=== PATIENT | female | born 1940 | race Caucasian/White ===

== ENCOUNTER 2019-04-23 16:13 | Inpatient (IN) | payer MEDICARE ==
[~2019-04-23] VITALS: Ht 162.6 cm; Wt 76.7 kg
[2019-04-23] VITALS (10 sets, daily range): BP systolic 102–137; BP diastolic 43–98
[2019-04-23 17:14] LABS: BASOPHILS % 0.3 % (0.0-1.0); EOSINOPHILS % 0.1 % (0.0-6.0); HEMATOCRIT 46.8 % (34.2-44.1); HEMOGLOBIN 15.8 g/dL (12.0-16.0); LYMPHOCYTES # (AUTO) 0.7 (1.0-3.2); LYMPHOCYTES % 6.4 % (18.0-39.1); MEAN CORPUSCULAR HEMOGLOBIN 31.1 pg (28-32); MEAN CORPUSCULAR HGB CONC 33.8 g/dL (31-35); MEAN CORPUSCULAR VOLUME 92.1 fL (81-99); MONOCYTES # (AUTO) 0.7 (0.2-0.8); MONOCYTES % 6.2 % (4.4-11.3); NEUTROPHILS # (AUTO) 9.5 (2.1-6.9); NEUTROPHILS % 86.1 % (38.7-80.0); PLATELET COUNT 113 x10e3/uL (140-360); RED BLOOD COUNT 5.08 x10e6/uL (3.6-5.1); RED CELL DISTRIBUTION WIDTH 15.4 % (11.7-14.4)
[2019-04-23 17:24] LABS: INR 2.96; PROTHROMBIN TIME 31.6 seconds (11.9-14.5)
[2019-04-23 17:29] LABS: ANION GAP 14.5 mmol/L (8-16); CALCIUM 9.8 mg/dL (8.4-10.2); CREATININE, SERUM 1.43 mg/dL (0.57-1.11); POTASSIUM 4.5 mmol/L (3.5-5.1)
[2019-04-23] MEDS: VANCOMYCIN 1GM/NS 250 ML 250 ML IV SCH (17:30)
[2019-04-23] MEDS ORDERED: CALCITRIOL0.25 MCG PO (18:01)
[2019-04-23] MEDS ORDERED: breo IH (18:01)
[2019-04-23] MEDS ORDERED: PREDNISONE5 MG PO (18:01)
[2019-04-23] MEDS ORDERED: GLIPIZIDE5 MG PO (18:01)
[2019-04-23] MEDS ORDERED: WARFARIN SODIUM1 MG PO (18:01)
[2019-04-23] MEDS ORDERED: CARTIA XT180 MG PO (18:01)
[2019-04-23] MEDS ORDERED: VENLAFAXINE HCL75 MG PO (18:01)
[2019-04-23] MEDS ORDERED: SPIRONOLACTONE25 MG PO (18:01)
[2019-04-23] MEDS ORDERED: FUROSEMIDE40 MG PO (18:01)
[2019-04-23] MEDS ORDERED: LEVOTHYROXINE50 MCG PO (18:01)
[2019-04-23] MEDS ORDERED: ALLOPURINOL300 MG PO (18:01)
[2019-04-23] MEDS ORDERED: SYSTANE GEL EYE10 ML OU (18:01)
[2019-04-23] MEDS ORDERED: GABAPENTIN300 MG PO (18:01)
[2019-04-23] MEDS ORDERED: KLOR-CON M2020 MEQ PO (18:01)
[2019-04-23] MEDS ORDERED: METOPROLOL SUCC25 MG PO (18:01)
[2019-04-23] MEDS ORDERED: PRAVASTATIN SOD40 MG PO (18:01)
[2019-04-23] MEDS ORDERED: DIGOXIN125 MCG PO (18:01)
[2019-04-23] MEDS: SODIUM CHLORIDE 0.9% 1000ML 1,000 ML IV SCH ×2 (18:06→23:46)
--- NOTE | 2019-04-23 18:09 | NUR ---
daughter, Karyn Gaston [phone] she stated that she would look for proper documentation and bring copy Addendum: 04/23/19 at 1810 by Anju Aguilar RN Amended: Links added.
--- NOTE | 2019-04-23 18:16 | Diagnostic Imaging Report ---
EXAMINATION: Abdominal ultrasound. CLINICAL INDICATION: Nausea vomiting COMPARISON: None DISCUSSION: Transverse and longitudinal images of the upper abdomen were obtained. The liver is normal in size measuring 13.9 centimeters in length in the right midclavicular line and shows normal echogenicity. No focal masses are seen in the liver. There is no intrahepatic biliary dilatation. The common bile duct measures 0.2 cm. The main portal vein measures 1.1 cm. The gallbladder contains gallstones. No wall thickening. Pierce's sign negative. The visualized portions of the pancreatic body are unremarkable. The spleen is normal in echogenicity and size measuring 9.7 centimeters in length. The right kidney measures 8.9 centimeters in length and the left kidney measures 9.4 centimeters. There is normal renal cortical echogenicity and no hydronephrosis, solid mass or shadowing calculi. 1.8 cm simple left renal cyst. The visualized portions of the great vessels are normal. No free fluid is seen. IMPRESSION: Cholelithiasis without inflammatory change Signed by: Dr. Laureano Patricio M.D. on 04/23/2019 6:13 PM
[2019-04-23] MEDS: PIPER-TAZ 3.375 GM 50 ML IV SCH ×3 (18:46→23:46)
[2019-04-24] VITALS (20 sets, daily range): BP systolic 109–146; BP diastolic 46–94
--- NOTE | 2019-04-24 04:22 | History and Physical ---
CHIEF COMPLAINT: Diarrhea. HISTORY OF PRESENT ILLNESS: Ms. Gaston is a 78-year-old female. She presented to the [facility] and where she was having diarrhea. She mostly lives in [facility] and lives a week in [place] with her daughter. She denies any bloody stools or black stools. She denies any chest pain, nausea, vomiting. She has a history of atrial fibrillation, diabetes, hypertension. She is on Coumadin at home. INR is 2.96. Her lactic acid was 5 at the [facility] and hence she was admitted for sepsis here. Her blood pressure has been stable. REVIEW OF SYSTEMS: GENERAL: Fever and chills. HEAD: Denies any head trauma. ENT: Denies any earache. CARDIOVASCULAR SYSTEM: Denies any chest pain. RESPIRATORY: Denies any shortness of breath. GASTROINTESTINAL: The patient is having diarrhea. The rest of the review of systems are negative except as in HPI. PAST MEDICAL HISTORY: Hypertension, hyperlipidemia, diabetes. The patient is on long-term Coumadin for atrial fibrillation. PHYSICAL EXAMINATION: VITAL SIGNS: Temperature 98.4, pulse of 74, blood pressure 112/60, respiratory rate 18, and O2 saturation 93% on room air. HEENT: Head is atraumatic and normocephalic. NECK: Supple. CHEST: Clear to auscultation bilaterally. No wheezing. HEART: S1, S2 audible. ABDOMEN: Soft. EXTREMITIES: No pedal edema. NEUROLOGIC: Awake and alert. LABORATORY DATA: Sodium 135, potassium 4.5, BUN 35, creatinine 1.43. INR is 2.96. White count of 10,000. CT abdomen and pelvis, which was done in the emergency room, showed cholelithiasis without inflammatory changes. ASSESSMENT AND PLAN: Ms. Gaston is a 78-year-old female with sepsis. No clear-cut source. The patient is having diarrhea. No CT evidence of diverticulitis. Current problem: 1. Sepsis, etiology is not very clear. CT abdomen did not show any source. We did the abdominal ultrasound and it did not show any evidence of cholelithiasis. Chest x-ray is not showing any evidence for pneumonia. Continue the broad-spectrum antibiotic. I will consult ID. 2. Atrial fibrillation, currently rate controlled. The patient is on Coumadin, which will be resumed. Home medication will be resumed as well. We will consider consulting Cardiology. 3. Acute kidney injury likely dehydration. Continue the patient on IV fluids. Recheck labs in a.m. 4. No need for deep venous thrombosis prophylaxis. The patient is anticoagulated. Coumadin will be started in the a.m. 5. We will put the patient on clear liquid diet until seen by Gastroenterology. Critical care time spent 50 minutes. MD JYOTI Valderrama/NENA /[id number]
[2019-04-24] MEDS: VANCOMYCIN 1GM/NS 250 ML 250 ML IV SCH (04:43)
[2019-04-24 05:04] LABS: BASOPHILS % 0.2 % (0.0-1.0); EOSINOPHILS # (AUTO) 0.1 (0.0-0.4); EOSINOPHILS % 1.2 % (0.0-6.0); HEMOGLOBIN 14.6 g/dL (12.0-16.0); LYMPHOCYTES % 12.5 % (18.0-39.1); MEAN CORPUSCULAR HEMOGLOBIN 30.7 pg (28-32); MEAN CORPUSCULAR HGB CONC 33.2 g/dL (31-35); MEAN CORPUSCULAR VOLUME 92.6 fL (81-99); MONOCYTES # (AUTO) 0.7 (0.2-0.8); NEUTROPHILS # (AUTO) 6.3 (2.1-6.9); NEUTROPHILS % 77.6 % (38.7-80.0); PLATELET COUNT 102 x10e3/uL (140-360); RED BLOOD COUNT 4.75 x10e6/uL (3.6-5.1); RED CELL DISTRIBUTION WIDTH 15.5 % (11.7-14.4)
[2019-04-24 05:22] LABS: ANION GAP 13.6 mmol/L (8-16); CALCIUM 8.8 mg/dL (8.4-10.2); CREATININE, SERUM 1.17 mg/dL (0.57-1.11); POTASSIUM 3.6 mmol/L (3.5-5.1)
--- NOTE | 2019-04-24 06:34 | NUR ---
Contreras placed for pt complaint of unable to void, urine retention. 16 FR 10cc balloon. Sterile technique. Foul yellow urine with sediment 550 cc immediate return. No complications noted.
[2019-04-24] MEDS: LEVOTHYROXINE SODIUM 100 MCG TAB PO SCH (07:12)
[2019-04-24] MEDS: PIPER-TAZ 3.375 GM 50 ML IV SCH ×2 (07:12→11:44)
--- NOTE | 2019-04-24 07:35 | NUR ---
Call to notify Dr Mckeon of new consult for A fib. Answering service received call and stated, "do not worry, I will send him this consult".
--- NOTE | 2019-04-24 07:36 | NUR ---
Paged and spoke with Dr Landers regarding consult for abdominal pain.
[2019-04-24] MEDS: ALLOPURINOL 300 MG TAB PO SCH (08:40)
[2019-04-24] MEDS: PREDNISONE 5 MG TAB PO SCH (08:40)
[2019-04-24] MEDS: CALCITRIOL 0.25 MCG CAP PO SCH (08:40)
[2019-04-24] MEDS: SODIUM CHLORIDE 0.9% 1000ML 1,000 ML IV SCH ×3 (08:45→23:05)
[2019-04-24] MEDS ORDERED: DEXTROSE 50% SYRINGE 50 ML IV PRN ×2 (09:15)
[2019-04-24 09:43] LABS: BILIRUBIN,URINE NEGATIVE (NEGATIVE); CLARITY,URINE CLEAR (CLEAR); COLOR,URINE YELLOW (YELLOW); KETONES,URINE NEGATIVE (NEGATIVE); LEUKOCYTE ESTERASE ,URINE NEGATIVE (NEGATIVE); NITRITE,URINE NEGATIVE (NEGATIVE); PROTEIN,URINE DIPSTICK NEGATIVE (NEGATIVE); URINE UROBILINOGEN 0.2 mg/dL (0.2 - 1)
[2019-04-24 10:01] LABS: AMORPHOUS SEDIMENT,URINE FEW (FEW); BACTERIA,URINE MODERATE /HPF; EPITHELIAL CELLS,URINE MODERATE /LPF
[2019-04-24] MEDS: INSULIN LISPRO 100 UNIT/1 ML 3ML VIAL SQ SCH ×3 (11:30→21:24)
[2019-04-24] MEDS: DIGOXIN 0.125 MG TAB PO SCH (11:42)
[2019-04-24] MEDS: DILTIAZEM HCL 180 MG CAP ER PO SCH (11:42)
[2019-04-24] MEDS: GABAPENTIN 300 MG CAP PO SCH (11:43)
[2019-04-24] MEDS ORDERED: CEFTRIAXONE SOD 1 GM VIAL IV SCH (15:15)
--- NOTE | 2019-04-24 15:21 | NUR ---
dr liz here to see pt, abx changed to rocephin
[2019-04-24] MEDS: CEFTRIAXONE SOD 1 GM/NS 50 ML 50 ML IV SCH (16:30)
--- NOTE | 2019-04-24 16:49 | Consultation ---
DATE OF CONSULTATION: 04/24/2019 Infectious Disease Consultation I would like to thank Dr. Finley for this interesting consult. HISTORY OF PRESENT ILLNESS: A 78-year-old female with past medical history of hypertension, hyperlipidemia, diabetes mellitus, atrial fibrillation on anticoagulation with Coumadin, has been visiting her daughter in [place] from [place]. According to the patient, she does not remember what exactly was going on, but a day before hospital admission she started having nausea and vomiting with a few bouts of diarrhea. The patient denies any exotic foods. Denies any sick contacts. Denies any fever, confusion. The patient is also complaining of frequency in urination. With these complaints, the patient went to [facility] ER, where she was found to have elevated INR of 2.96, and elevated lactic acid. For the concerns of sepsis, the patient was sent to our facility for further evaluation. She was admitted in ICU. Initial workup suggested WBC count of 10 and creatinine of 1.4. Her lactic acid was elevated. The patient was started on IV vancomycin and Zosyn. Initial workup suggested pyuria and bacteriuria. No signs of pneumonia. An ultrasound of the abdomen showed cholelithiasis without any inflammation, and our service has been asked to evaluate and give further recommendations. PAST MEDICAL HISTORY: Hypertension, hyperlipidemia, diabetes mellitus, and atrial fibrillation. PAST SURGICAL HISTORY: Nonsignificant. MEDICATIONS: Reviewed. ALLERGIES: TO SULFA AND CODEINE. REVIEW OF SYSTEMS: All 14-point review of systems was done, all were negative except for the once mentioned in HPI. The patient feels better than yesterday. PHYSICAL EXAMINATION: VITAL SIGNS: Temperature is 98.4, respiratory rate is 18, heart rate is 97, and blood pressure is 109/73. GENERAL: An elderly pleasant female, sitting comfortably in the chair. HEENT: Atraumatic and normocephalic. CHEST: Clear to auscultation bilaterally. HEART: S1, S2 normal. ABDOMEN: Soft and nontender. EXTREMITIES: No edema. NEUROLOGIC: Alert and oriented x3. SKIN: No rashes. LABORATORY DATA: WBC 8.14, hemoglobin 14.6, hematocrit 44, and platelet count is 102. Chemistry; sodium 135, potassium 3.6, BUN 28, and creatinine 1.7. Lactic acid initially was 23.9, now 16.7. Calcium is 8.8. Ultrasound of the abdomen shows cholelithiasis without inflammatory changes. ASSESSMENT AND PLAN: This is a pleasant 78-year-old female with past medical history of hypertension, hyperlipidemia, diabetes mellitus, and atrial fibrillation, admitted with nausea and vomiting, likely due to viral gastroenteritis. The patient had elevated lactic acid and creatinine along with electrolyte imbalance representing dehydration. Urinalysis suggestive of urinary tract infection. We will discontinue current antibiotics. Start the patient on Rocephin 1 g daily. We will follow the urine culture for further recommendations. Thank you for letting me participate in the care of your patient. MD JEFF Smith/MODL /[id number]
[2019-04-24] MEDS: WARFARIN SOD 3 MG TAB PO SCH (17:22)
--- NOTE | 2019-04-24 22:56 | Consultation ---
DATE OF CONSULTATION: 04/24/2019 Cardiology Consultation Thank you so much for asking me to see this nice lady in consultation. REASON FOR CONSULTATION: Ms. Gaston is a pleasant, elderly 78-year-old woman, who presented out to [facility] emergency room with a complaint of nausea and vomiting. HISTORY OF PRESENT ILLNESS: The patient reports her memory really is not very good, but she remembers having abdominal discomfort, nausea, vomiting. She is not sure whether she had fever, but did have abdominal pains. PAST MEDICAL HISTORY: May be incomplete due to her inability to recount memory details, but it is clear she has had chronic atrial fibrillation that she has a covered stent in her abdominal aorta. However, she cannot tell me the names of any of these people who performed these procedures nor further located. She lives by herself near [place]. She says she does not have horses or cattle. HOME MEDICATIONS: Include allopurinol 300 mg daily, calcitriol 0.25 mcg daily, digoxin 0.125 mg daily, Cartia XT 180 mg daily, furosemide 40 mg daily, gabapentin 300 mg, glipizide 5 mg daily, levothyroxine 50 mcg daily, metoprolol succinate 25 mg once daily, potassium 20 mEq twice a day, pravastatin 40 mg daily, prednisone 5 mg daily, spironolactone 25 mg daily, venlafaxine 75 mg two tabs daily, and warfarin three 1 mg tablets daily. PERSONAL AND SOCIAL HISTORY: She does not smoke or drink. REVIEW OF SYSTEMS: CARDIAC: She denies any history of myocardial infarction, but knows that she does take warfarin for atrial fibrillation. She denies any recent chest pains. PHYSICAL EXAMINATION: GENERAL: At this time shows a pleasant elderly woman, sitting in a chair. VITAL SIGNS: Blood pressure 130/70, pulse 90 and irregularly irregular. HEAD, EYES, EARS, NOSE, AND THROAT: Unremarkable. NECK: No jugular venous distention. No bruits. THORAX: Heart sounds S1 and S2 are equal, but irregularly irregular. There is no murmur audible. LUNGS: Clear at this time. ABDOMEN: Protuberant, nontender. No masses or organomegaly. EXTREMITIES: She has no cyanosis, clubbing, or edema. PERTINENT LABORATORY STUDIES: Show EKG showing atrial fibrillation without ST or T-wave changes. Ultrasound of the abdomen shows gallstones without Pierce sign and covered aortic stent. Chemistry show glucose 98, BUN 28, creatinine 1.1. INR 2.96. Initial white cell count 10.9. ASSESSMENT: 1. Nausea and vomiting, not clear. 2. Cholelithiasis. 3. Chronic atrial fibrillation. 4. Covered aortic stent. 5. Type 2 adult onset diabetes. 6. Mild dementia. PLAN: We will check echocardiogram to evaluate left ventricular function and await further GI evaluation. We will follow her closely with you. Thank you for asking me to see her in consultation. MD HUGH Ness/NENA /[id number]
[2019-04-25] VITALS (8 sets, daily range): BP systolic 117–178; BP diastolic 46–77
[2019-04-25] MEDS: LEVOTHYROXINE SODIUM 100 MCG TAB PO SCH (05:05)
[2019-04-25 05:16] LABS: BASOPHILS % 0.4 % (0.0-1.0); EOSINOPHILS # (AUTO) 0.1 (0.0-0.4); EOSINOPHILS % 1.7 % (0.0-6.0); HEMATOCRIT 41.9 % (34.2-44.1); HEMOGLOBIN 13.6 g/dL (12.0-16.0); LYMPHOCYTES # (AUTO) 1.6 (1.0-3.2); LYMPHOCYTES % 21.1 % (18.0-39.1); MEAN CORPUSCULAR HEMOGLOBIN 30.8 pg (28-32); MEAN CORPUSCULAR HGB CONC 32.5 g/dL (31-35); MEAN CORPUSCULAR VOLUME 94.8 fL (81-99); MONOCYTES # (AUTO) 0.6 (0.2-0.8); MONOCYTES % 8.2 % (4.4-11.3); NEUTROPHILS % 67.9 % (38.7-80.0); PLATELET COUNT 106 x10e3/uL (140-360); RED BLOOD COUNT 4.42 x10e6/uL (3.6-5.1); RED CELL DISTRIBUTION WIDTH 15.8 % (11.7-14.4)
[2019-04-25 05:31] LABS: PROTHROMBIN TIME 31.9 seconds (11.9-14.5)
[2019-04-25 05:58] LABS: ANION GAP 13.2 mmol/L (8-16); BLOOD UREA NITROGEN 15 mg/dL (7-26); BUN/CREATININE RATIO 20 (6-25); CALCIUM 8.4 mg/dL (8.4-10.2); CARBON DIOXIDE 22 mmol/L (22-29); CHLORIDE 111 mmol/L (98-107); CREATININE, SERUM 0.76 mg/dL (0.57-1.11); EST GLOMERULAR FILTRATION RATE > 60 ML/MIN (60-); GLUCOSE 85 mg/dL (74-118); POTASSIUM 3.2 mmol/L (3.5-5.1); SODIUM 143 mmol/L (136-145)
[2019-04-25] MEDS: INSULIN LISPRO 100 UNIT/1 ML 3ML VIAL SQ SCH ×4 (07:30→21:00)
[2019-04-25] MEDS: SODIUM CHLORIDE 0.9% 1000ML 1,000 ML IV SCH (08:08)
[2019-04-25] MEDS ORDERED: POTASSIUM CHLORIDE 20 MEQ TAB CR PO NR (09:00)
[2019-04-25] MEDS: GLIPIZIDE 5 MG TAB PO SCH (09:01)
[2019-04-25] MEDS: DILTIAZEM HCL 180 MG CAP ER PO SCH (09:02)
[2019-04-25] MEDS: GABAPENTIN 300 MG CAP PO SCH (09:03)
[2019-04-25] MEDS: CALCITRIOL 0.25 MCG CAP PO SCH (09:03)
[2019-04-25] MEDS: DIGOXIN 0.125 MG TAB PO SCH (09:03)
[2019-04-25] MEDS: PREDNISONE 5 MG TAB PO SCH (09:03)
[2019-04-25] MEDS: ALLOPURINOL 300 MG TAB PO SCH (09:04)
[2019-04-25] MEDS: CEFTRIAXONE SOD 1 GM/NS 50 ML 50 ML IV SCH (16:11)
[2019-04-25] MEDS: WARFARIN SOD 3 MG TAB PO SCH (16:11)
--- NOTE | 2019-04-25 16:57 | NUR ---
nsg report given to marek gironpig furnace operator 3. for transfer to room 284
--- NOTE | 2019-04-25 19:00 | NUR ---
Completed BS rounds with morning nurse. Pt alert to name. Lying in bed HOB 60 degrees. Denies pain at this time. Family at BS. Call baez within reach. Will continue to monitor.
[2019-04-26] VITALS (7 sets, daily range): BP systolic 118–182; BP diastolic 59–79
--- NOTE | 2019-04-26 04:45 | Consultation ---
DATE OF CONSULTATION: 04/25/2019 GI Consult Note CHIEF COMPLAINT: Nausea, vomiting, diarrhea. HISTORY OF PRESENT ILLNESS: A 78 years old female, who got admitted with acute onset of nausea, vomiting, diarrhea for a couple of days. Evaluation also revealed that she has urinary tract infection. She is being treated with antibiotic. Today when I saw her, her GI symptoms completely resolved. She is no longer having diarrhea. Nausea and vomiting also resolved. She has no associated abdominal pain. No fever or chills. No extraintestinal complaints at this time. REVIEW OF SYSTEMS: Twelve-point system reviewed, symptomatology is limited as per HPI. PAST MEDICAL HISTORY: Hypertension, hyperlipidemia, type 2 diabetes, atrial fibrillation on warfarin. PAST SURGICAL HISTORY: Unknown. FAMILY HISTORY: Noncontributory, given her advanced age. SOCIAL HISTORY: No smoking, alcohol, or any recent illicit drug use. ALLERGIES: SULFA, CODEINE. HOME MEDICATIONS: Allopurinol, calcitriol, digoxin, diltiazem, furosemide, gabapentin, glipizide, levothyroxine, metoprolol, potassium chloride, pravastatin, prednisone, MiraLAX, spironolactone, venlafaxine, warfarin. INPATIENT MEDICATIONS: Reviewed as per OCT. PHYSICAL EXAMINATION: VITAL SIGNS: Temperature 98.5, pulse 64, respirations 16, blood pressure 119/56, oxygen saturation 98% on room air. GENERAL: Not in any acute distress. Oral mucosa is moist. Anicteric sclerae. CVS: S1, S2. Irregularly irregular. LUNGS: Bilaterally grossly clear. ABDOMEN: Soft, nondistended, nontender. No palpable mass or hernia. Positive bowel sounds. LABORATORY DATA: WBC 7.43, hemoglobin 13.6, hematocrit 41.9. MCV 94.8, platelet count 106. Sodium 143, potassium 3.2, chloride 111, bicarb 22. BUN 15, creatinine 0.76. Urinalysis, positive for UTI. Urine culture negative. Blood culture negative. Ultrasound of the abdomen showed normal size liver, gallbladder contains some stones without any gallbladder wall thickening. Spleen is normal. No free fluids. IMPRESSION: 1. Acute nausea, vomiting, diarrhea that were self-limiting, which have resolved. The patient's overall health condition improved significantly after she is being treated for urinary tract infection. 2. Thrombocytopenia, unclear. PLAN: Continue present medical management. Nothing to offer from GI standpoint at this time. Recommend hematology consult for thrombocytopenia. There is a chance that she may be having COLVIN/liver cirrhosis with underlying portal hypertension causing thrombocytopenia. Spleen size, however, was noted normal in ultrasound. Once the patient is discharged, then I will follow her in my office for further workup and evaluation to rule out underlying cirrhosis. I thank Dr. Finley for allowing me to participate in the care of this patient. Blaise Mckeon MD SA/NENA /[id number]
[2019-04-26] MEDS: LEVOTHYROXINE SODIUM 100 MCG TAB PO SCH (05:27)
[2019-04-26 06:10] LABS: BASOPHILS % 0.4 % (0.0-1.0); EOSINOPHILS # (AUTO) 0.1 (0.0-0.4); EOSINOPHILS % 1.9 % (0.0-6.0); HEMATOCRIT 45.8 % (34.2-44.1); HEMOGLOBIN 14.9 g/dL (12.0-16.0); LYMPHOCYTES # (AUTO) 1.3 (1.0-3.2); LYMPHOCYTES % 19.2 % (18.0-39.1); MEAN CORPUSCULAR HGB CONC 32.5 g/dL (31-35); MEAN CORPUSCULAR VOLUME 95.2 fL (81-99); MONOCYTES # (AUTO) 0.6 (0.2-0.8); MONOCYTES % 8.1 % (4.4-11.3); NEUTROPHILS # (AUTO) 4.8 (2.1-6.9); NEUTROPHILS % 69.8 % (38.7-80.0); PLATELET COUNT 100 x10e3/uL (140-360); RED BLOOD COUNT 4.81 x10e6/uL (3.6-5.1); RED CELL DISTRIBUTION WIDTH 15.4 % (11.7-14.4)
[2019-04-26 06:28] LABS: INR 2.46; PROTHROMBIN TIME 27.4 seconds (11.9-14.5)
[2019-04-26 06:34] LABS: ANION GAP 14.5 mmol/L (8-16); BLOOD UREA NITROGEN 14 mg/dL (7-26); BUN/CREATININE RATIO 18 (6-25); CALCIUM 9.6 mg/dL (8.4-10.2); CARBON DIOXIDE 22 mmol/L (22-29); CHLORIDE 105 mmol/L (98-107); CREATININE, SERUM 0.77 mg/dL (0.57-1.11); EST GLOMERULAR FILTRATION RATE > 60 ML/MIN (60-); GLUCOSE 94 mg/dL (74-118); POTASSIUM 3.5 mmol/L (3.5-5.1); SODIUM 138 mmol/L (136-145)
--- NOTE | 2019-04-26 07:00 | NUR ---
received am report from RN and morning rounds done. pt is sleeping comfortably, no s/s of distress. call light within reach and side rails up.
--- NOTE | 2019-04-26 07:22 | NUR ---
Pt handed off to morning nurse. BS report given. No acute distress noted.
[2019-04-26] MEDS: INSULIN LISPRO 100 UNIT/1 ML 3ML VIAL SQ SCH ×4 (07:30→20:00)
[2019-04-26] MEDS: GLIPIZIDE 5 MG TAB PO SCH (09:44)
[2019-04-26] MEDS: DILTIAZEM HCL 180 MG CAP ER PO SCH (09:44)
[2019-04-26] MEDS: DIGOXIN 0.125 MG TAB PO SCH (09:44)
[2019-04-26] MEDS: CALCITRIOL 0.25 MCG CAP PO SCH (09:45)
[2019-04-26] MEDS: GABAPENTIN 300 MG CAP PO SCH (09:45)
[2019-04-26] MEDS: PREDNISONE 5 MG TAB PO SCH (09:45)
[2019-04-26] MEDS: ALLOPURINOL 300 MG TAB PO SCH (09:46)
[2019-04-26] MEDS ORDERED: PRAVASTATIN SOD40 MG PO (09:53)
[2019-04-26] MEDS ORDERED: VITAMIN D1000 UNI1 PO (09:56)
[2019-04-26] MEDS: IPRATROPIUM BROMIDE 0.02% 2.5 ML NEB NEB SCH ×3 (11:10→19:40)
--- NOTE | 2019-04-26 11:30 | NUR ---
EDUCATED ABOUT IMM, SIGNED, FILED IN CHART, WITH COPY LEFT WITH FAMILY AT BEDSIDE.
[2019-04-26] MEDS: FUROSEMIDE 20 MG TAB PO SCH (11:42)
[2019-04-26] MEDS: VENLAFAXINE HCL 75 MG CAPCR PO SCH (11:42)
[2019-04-26] MEDS: METOPROLOL TARTRATE 25 MG TAB PO SCH (11:43)
--- NOTE | 2019-04-26 14:23 | NUR ---
REMOVED RIOS. INSTRUCTED PT TO CALL NURSE FOR HELP WHEN NEEDING TO GO TO THE BATHROOM
[2019-04-26] MEDS: CEFTRIAXONE SOD 1 GM/NS 50 ML 50 ML IV SCH (17:00)
[2019-04-26] MEDS: WARFARIN SOD 3 MG TAB PO SCH (17:16)
[2019-04-26] MEDS ORDERED: SODIUM CHLORIDE 0.9% 250ML 250 ML ONE (17:23)
[2019-04-26] MEDS: BUDESONIDE/FORMOTEROL 160/4.5MCG INHALER INH SCH (20:00)
--- NOTE | 2019-04-26 20:00 | NUR ---
PATIENT AOX2 NO SIGNS OF DISTRESS NOTED. FAMILY MEMBER PRESENT IN ROOM, PATIENT AWARE TO CALL NURSE WHENEVER SHE NEEDS TO GO TO RESTROOM. PATIENT IN RECLINER, CALL LIGHT IS WITHIN EASY REACH, WILL CONTINUE TO MONITOR.
--- NOTE | 2019-04-26 21:45 | NUR ---
PATIENT IS BACK IN BED, VOICES THAT SHE STILL KNOWS TO CALL NURSE FOR RESTROOM ASSISTANCE. BED ALARM IS ACTIVATED, BOTH SIDE RAILS ARE UP, CALL LIGHT WITHIN REACH, WILL CONTINUE TO MONITOR.
[2019-04-27] VITALS (8 sets, daily range): BP systolic 108–164; BP diastolic 61–79
--- NOTE | 2019-04-27 00:09 | Progress Note ---
DATE: 04/26/2019 GI Progress Report SUBJECTIVE: The patient reports no abdominal pain. Tolerating oral diet. No nausea, vomiting or diarrhea. REVIEW OF SYSTEMS: GENERAL: No fever or chills. CVS: No chest pain or palpitation. RESPIRATORY: No cough or expectoration. MEDICATIONS: Reviewed as per OCT. OBJECTIVE: VITAL SIGNS: Temperature 97.7, pulse 71, respirations 20, blood pressure 134/63 and oxygen saturation 97% on room air. GENERAL: Not in any acute distress. HEENT: Oral mucosa is moist. Anicteric sclerae. ABDOMEN: Soft, nondistended. Nontender. No palpable mass or hernia. Positive bowel sounds. LABORATORY DATA: WBC 6.92, hemoglobin 14.9, hematocrit 45.8, MCV 95.2, and platelet count 100. Sodium 138, potassium 3.5, chloride 105, bicarb 22, BUN 14, creatinine 0.77. ASSESSMENT: 1. Acute gastroenteritis, this has resolved. 2. Nonalcoholic steatohepatitis liver cirrhosis with likely underlying portal hypertension causing thrombocytopenia. PLAN: Today, her daughter was available at the bedside. She told me that her mom lives in [place]. She sees a space scheduler, Dr. Seals, he is taking care of her liver cirrhosis. From GI standpoint, patient can be discharged home. Blaise Mckeon MD SA/NENA /[id number]
[2019-04-27 06:15] LABS: BASOPHILS % 0.6 % (0.0-1.0); EOSINOPHILS # (AUTO) 0.1 (0.0-0.4); EOSINOPHILS % 2.1 % (0.0-6.0); HEMATOCRIT 46.1 % (34.2-44.1); LYMPHOCYTES % 29.5 % (18.0-39.1); MEAN CORPUSCULAR HEMOGLOBIN 30.9 pg (28-32); MEAN CORPUSCULAR HGB CONC 32.5 g/dL (31-35); MEAN CORPUSCULAR VOLUME 95.1 fL (81-99); MONOCYTES # (AUTO) 0.6 (0.2-0.8); MONOCYTES % 9.3 % (4.4-11.3); NEUTROPHILS # (AUTO) 3.9 (2.1-6.9); NEUTROPHILS % 57.3 % (38.7-80.0); PLATELET COUNT 89 x10e3/uL (140-360); RED BLOOD COUNT 4.85 x10e6/uL (3.6-5.1); RED CELL DISTRIBUTION WIDTH 15.3 % (11.7-14.4)
[2019-04-27] MEDS: LEVOTHYROXINE SODIUM 100 MCG TAB PO SCH (06:25)
[2019-04-27] MEDS: BUDESONIDE/FORMOTEROL 160/4.5MCG INHALER INH SCH ×2 (06:25→19:05)
[2019-04-27 06:27] LABS: ANION GAP 17.5 mmol/L (8-16); BLOOD UREA NITROGEN 15 mg/dL (7-26); BUN/CREATININE RATIO 19 (6-25); CALCIUM 9.8 mg/dL (8.4-10.2); CARBON DIOXIDE 20 mmol/L (22-29); CHLORIDE 106 mmol/L (98-107); CREATININE, SERUM 0.79 mg/dL (0.57-1.11); EST GLOMERULAR FILTRATION RATE > 60 ML/MIN (60-); GLUCOSE 109 mg/dL (74-118); POTASSIUM 3.5 mmol/L (3.5-5.1); SODIUM 140 mmol/L (136-145)
--- NOTE | 2019-04-27 07:00 | NUR ---
received am report from nurse and morning rounds done. pt is resting comfortably in bed, no s/s of distress. pt responded to verbal stimuli and is alert. new rash present on left lower gao, applied calazime skin barrier and will continue to monitor. call light within reach and pt instructed to call nurse for help
[2019-04-27] MEDS: INSULIN LISPRO 100 UNIT/1 ML 3ML VIAL SQ SCH ×4 (07:30→20:15)
[2019-04-27] MEDS: IPRATROPIUM BROMIDE 0.02% 2.5 ML NEB NEB SCH ×3 (07:30→21:30)
[2019-04-27] MEDS: GLIPIZIDE 5 MG TAB PO SCH (08:50)
[2019-04-27] MEDS: DILTIAZEM HCL 180 MG CAP ER PO SCH (08:52)
[2019-04-27] MEDS: VENLAFAXINE HCL 75 MG CAPCR PO SCH (08:52)
[2019-04-27] MEDS: DIGOXIN 0.125 MG TAB PO SCH (08:52)
[2019-04-27] MEDS: GABAPENTIN 300 MG CAP PO SCH (08:53)
[2019-04-27] MEDS: PREDNISONE 5 MG TAB PO SCH (08:53)
[2019-04-27] MEDS: CALCITRIOL 0.25 MCG CAP PO SCH (08:53)
[2019-04-27] MEDS: FUROSEMIDE 20 MG TAB PO SCH (08:53)
[2019-04-27] MEDS: ALLOPURINOL 300 MG TAB PO SCH (08:53)
[2019-04-27] MEDS: METOPROLOL TARTRATE 25 MG TAB PO SCH (08:53)
[2019-04-27 08:57] LABS: EOSINOPHILS % (MANUAL) 2 % (0-7); LYMPHOCYTES % (MANUAL) 28 % (19-48); MONOCYTES % (MANUAL) 10 % (3.4-9.0); NEUTROPHILS % (MANUAL) 60 % (40-74); PLATELET ESTIMATE MARKEDLY DECREASED; PLATELET MORPHOLOGY COMMENT FEW GIANT; RBC MORPHOLOGY COMMENT NORMAL
[2019-04-27] MEDS ORDERED: VENLAFAXINE HCL 75 MG TAB PO SCH (09:00)
[2019-04-27 09:04] LABS: INR 2.15; PROTHROMBIN TIME 24.7 seconds (11.9-14.5)
[2019-04-27] MEDS: CEFTRIAXONE SOD 1 GM/NS 50 ML 50 ML IV SCH (15:30)
[2019-04-27] MEDS: WARFARIN SOD 3 MG TAB PO SCH (17:17)
--- NOTE | 2019-04-27 18:30 | NUR ---
CHANGE OF CONDITION pt was found by the tech sitting on the floor after sliding off the bedside recliner. pt stated that she slid off and landed on her bottom, she also stated that she did not hit her head and she had no complaints of pain. upon further assessment, there were no new abrasions/cuts/scrapes noted. the daughter of the patient was notified and Dr. domingo was paged with no response as of yet.
--- NOTE | 2019-04-27 20:00 | NUR ---
RECEIVED CALL FROM DR. JOHNSON TO UPDATE HIM ON PATIENT'S CONDITION. PATIENT IS ALERT AND STABLE, NO SIGNS OF DISTRESS NOTED. FAMILY MEMBER PRESENT AND PATIENT SITTING IN RECLINER. PATIENT KNOWS TO USE CALL LIGHT TO AMBULATE. CALL LIGHT IS WITHIN EASY REACH, WILL CONTINUE TO MONITOR.
[2019-04-28] VITALS (8 sets, daily range): BP systolic 141–158; BP diastolic 72–90
--- NOTE | 2019-04-28 02:30 | Consultation ---
DATE OF CONSULTATION: REASON FOR CONSULTATION: Evaluation and management of the patient with thrombocytopenia. HISTORY OF PRESENT ILLNESS: Ms. Gaston is a 78-year-old female with multiple medical problems including known history of hypertension, hyperlipidemia, diabetes mellitus, and atrial fibrillation on chronic anticoagulation, presents to the emergency department due to nausea, vomiting, and diarrhea. She underwent workup revealing urinary tract infection and subsequently started on IV antibiotics. She was seen and evaluated by Infectious Disease service as well as Gastroenterology. Hematology-Oncology has been consulted to assist with the management due to thrombocytopenia. PAST MEDICAL HISTORY: 1. Hypertension. 2. Hyperlipidemia. 3. Diabetes mellitus. 4. Atrial fibrillation on chronic anticoagulation. PAST SURGICAL HISTORY: None. SOCIAL HISTORY: No reported history of smoking, alcohol use, or illicit drug use. ALLERGIES: SULFA AND CODEINE. CURRENT MEDICATIONS: Reviewed as per electronic medical record. REVIEW OF SYSTEMS: A 14-point review of systems negative except as mentioned per history of presenting illness. PHYSICAL EXAMINATION: VITAL SIGNS: Reviewed as per electronic medical record. HEENT: PERRLA. Extraocular movements are intact. Head is atraumatic and normocephalic. NECK: Supple. CVS: S1 and S2 audible. RESPIRATORY: Decreased bilateral air entry. ABDOMEN: Soft. Positive bowel sounds. EXTREMITIES: Negative cyanosis. NEUROLOGIC: The patient is alert. LABORATORY DATA: White blood cell count of 7.4, hemoglobin 13.6, hematocrit 41.9, platelet 106, INR 3.0, BUN 15, creatinine 0.7. ASSESSMENT AND PLAN: Ms. Gaston is a very pleasant 78-year-old female with known history of hypertension, hyperlipidemia, diabetes mellitus, and atrial fibrillation on chronic anticoagulation, admitted to emergency department due to nausea, vomiting, and diarrhea. She had a workup revealing acute gastroenteritis as well as possible urinary tract infection. She has been started on IV antibiotics with improved symptoms. Hematology-Oncology has been consulted due to thrombocytopenia. I have reviewed the record and discussed at length with the GI team as well as the patient about her current disease status and importance of further workup. It appears that there might be a concern of underlying liver cirrhosis that could contribute to thrombocytopenia. However, I will get baseline workup and depending on the result we will provide further recommendations. Meanwhile, we will closely monitor as platelet count is in noncritical range, though it needs to be checked on daily basis for the trend, especially as the patient is on Coumadin therapy. Thank you for the consult. I will continue to be available. Please call with questions. MD DWAIN Ignacio/MODL /[id number]
[2019-04-28] MEDS: LEVOTHYROXINE SODIUM 100 MCG TAB PO SCH (06:48)
--- NOTE | 2019-04-28 07:00 | NUR ---
received am report from nurse and morning rounds done. pt is alert resting in bed, no s/s of distress. call light within reach and pt instructed to call nurse for help. side rails are up
[2019-04-28] MEDS: INSULIN LISPRO 100 UNIT/1 ML 3ML VIAL SQ SCH ×4 (07:30→20:20)
[2019-04-28] MEDS: IPRATROPIUM BROMIDE 0.02% 2.5 ML NEB NEB SCH ×3 (07:30→20:20)
[2019-04-28] MEDS: BUDESONIDE/FORMOTEROL 160/4.5MCG INHALER INH SCH ×2 (07:35→19:38)
[2019-04-28] MEDS: GLIPIZIDE 5 MG TAB PO SCH (08:36)
[2019-04-28] MEDS: DILTIAZEM HCL 180 MG CAP ER PO SCH (08:36)
[2019-04-28] MEDS: VENLAFAXINE HCL 75 MG CAPCR PO SCH (08:36)
[2019-04-28] MEDS: METOPROLOL TARTRATE 25 MG TAB PO SCH (08:37)
[2019-04-28] MEDS: FUROSEMIDE 20 MG TAB PO SCH (08:37)
[2019-04-28] MEDS: GABAPENTIN 300 MG CAP PO SCH (08:37)
[2019-04-28] MEDS: PREDNISONE 5 MG TAB PO SCH (08:37)
[2019-04-28] MEDS: DIGOXIN 0.125 MG TAB PO SCH (08:37)
[2019-04-28] MEDS: CALCITRIOL 0.25 MCG CAP PO SCH (08:38)
[2019-04-28] MEDS: ALLOPURINOL 300 MG TAB PO SCH (08:38)
[2019-04-28 09:26] LABS: INR 2.16; PROTHROMBIN TIME 24.8 seconds (11.9-14.5)
[2019-04-28 09:53] LABS: FERRITIN 103.48 ng/mL (4.63-204.00)
[2019-04-28 12:05] LABS: FOLATE 28.2 ng/mL (7.0-15.4)
--- NOTE | 2019-04-28 14:05 | NUR ---
Visit made by the Spiritual Care Department Pastoral Visitor, Manjeet Queen. PV provided pastoral presence, hospitality, and supportive listening. Pastoral Visitor informed pt/family of the scope of Product Marketing Director Services and availability. ALPHONSE AMEZQUITA [employer]ili[employer] Supervisor Spiritual Care Department O: [phone] Pager: [phone] ([phone] number calling from)
[2019-04-28] MEDS: CEFTRIAXONE SOD 1 GM/NS 50 ML 50 ML IV SCH (15:30)
[2019-04-28] MEDS: WARFARIN SOD 3 MG TAB PO SCH (17:24)
--- NOTE | 2019-04-28 20:20 | NUR ---
PATIENT IS ALERT AND ORIENTED, NO SIGNS OF DISTRESS NOTED. FAMILY MEMBER AT BEDSIDE, AND PATIENT IS GETTING RESPIRATORY TREATMENT WHILE SITTING IN RECLINER. CALL LIGHT IS WITHIN EASY REACH, WILL CONTINUE TO MONITOR.
[2019-04-29 00:15] VITALS: BP 141/68
--- NOTE | 2019-04-29 00:53 | NUR ---
PATIENT RESTING IN BED, BOTH EYES CLOSED, NO RESPIRATORY DISTRESS NOTED. BED ALARM IS ACTIVATED, BOTH SIDE RAILS ARE UP, CALL LIGHT WITHIN REACH, WILL CONTINUE TO MONITOR.
[2019-04-29 04:46] VITALS: BP 146/76
[2019-04-29] MEDS: LEVOTHYROXINE SODIUM 100 MCG TAB PO SCH (05:37)
[2019-04-29 06:27] LABS: BASOPHILS % 0.4 % (0.0-1.0); EOSINOPHILS # (AUTO) 0.2 (0.0-0.4); EOSINOPHILS % 2.2 % (0.0-6.0); HEMATOCRIT 43.7 % (34.2-44.1); HEMOGLOBIN 14.6 g/dL (12.0-16.0); LYMPHOCYTES # (AUTO) 2.3 (1.0-3.2); LYMPHOCYTES % 31.1 % (18.0-39.1); MEAN CORPUSCULAR HEMOGLOBIN 31.1 pg (28-32); MEAN CORPUSCULAR HGB CONC 33.4 g/dL (31-35); MONOCYTES # (AUTO) 0.7 (0.2-0.8); MONOCYTES % 9.2 % (4.4-11.3); NEUTROPHILS # (AUTO) 4.1 (2.1-6.9); NEUTROPHILS % 55.6 % (38.7-80.0); PLATELET COUNT 122 x10e3/uL (140-360); RED CELL DISTRIBUTION WIDTH 15.4 % (11.7-14.4)
[2019-04-29 06:52] LABS: ANION GAP 16.3 mmol/L (8-16); BLOOD UREA NITROGEN 22 mg/dL (7-26); BUN/CREATININE RATIO 27 (6-25); CALCIUM 10.3 mg/dL (8.4-10.2); CARBON DIOXIDE 26 mmol/L (22-29); CHLORIDE 104 mmol/L (98-107); CREATININE, SERUM 0.83 mg/dL (0.57-1.11); EST GLOMERULAR FILTRATION RATE > 60 ML/MIN (60-); GLUCOSE 109 mg/dL (74-118); POTASSIUM 3.3 mmol/L (3.5-5.1); SODIUM 143 mmol/L (136-145)
[2019-04-29] MEDS: IPRATROPIUM BROMIDE 0.02% 2.5 ML NEB NEB SCH (07:00)
[2019-04-29] MEDS: BUDESONIDE/FORMOTEROL 160/4.5MCG INHALER INH SCH (07:00)
[2019-04-29] MEDS: INSULIN LISPRO 100 UNIT/1 ML 3ML VIAL SQ SCH ×3 (07:30→11:52)
--- NOTE | 2019-04-29 07:30 | NUR ---
PT RESTING DURING BEDSIDE ROUNDS WHICH WAS DONE EARLIER
[2019-04-29 07:44] VITALS: BP_SYST 135; BP_SYST 198; BP_DIAS 78; BP_DIAS 84
[2019-04-29 07:55] VITALS: BP 198/84
[2019-04-29] MEDS: GLIPIZIDE 5 MG TAB PO SCH (08:00)
[2019-04-29] MEDS: PREDNISONE 5 MG TAB PO SCH (09:00)
[2019-04-29] MEDS: DILTIAZEM HCL 180 MG CAP ER PO SCH (09:00)
[2019-04-29] MEDS: GABAPENTIN 300 MG CAP PO SCH (09:00)
[2019-04-29] MEDS: METOPROLOL TARTRATE 25 MG TAB PO SCH (09:00)
[2019-04-29] MEDS: ALLOPURINOL 300 MG TAB PO SCH (09:00)
[2019-04-29] MEDS: VENLAFAXINE HCL 75 MG CAPCR PO SCH (09:00)
[2019-04-29] MEDS: CALCITRIOL 0.25 MCG CAP PO SCH (09:00)
[2019-04-29] MEDS: FUROSEMIDE 20 MG TAB PO SCH (09:00)
[2019-04-29] MEDS: DIGOXIN 0.125 MG TAB PO SCH (09:00)
[2019-04-29 09:14] LABS: PLATELET ESTIMATE SLIGHTLY DECREASED
--- NOTE | 2019-04-29 09:15 | NUR ---
DR JOHNSON TO SEE PT, NEW ORDERS REC'D PT TO BE DISCHARGED AFTER LUNCH
[2019-04-29 11:23] LABS: INR 2.25; PROTHROMBIN TIME 25.6 seconds (11.9-14.5)
[2019-04-29 11:32] VITALS: BP 142/78
--- NOTE | 2019-04-29 14:17 | NUR ---
PATIENT DISCHARGE ORDER. IV DISCONTINUED EARLIER
--- NOTE | 2019-04-29 20:09 | Discharge Summary ---
FINAL DIAGNOSES: 1. Gastroenteritis. 2. Possible urinary tract infection. 3. Atrial fibrillation. 4. Acute kidney injury that is resolved, possibly dehydration. 5. Mild thrombocytopenia, which is since improved. 6. Long-term Coumadin treatment for atrial fibrillation. ADMISSION HISTORY AND HOSPITAL COURSE: Ms. Gaston is a 78-year-old female. She presented to the emergency room with complaints of diarrhea. During the hospital stay, the patient was hypotensive, had mild sepsis, never required any vasopressors. IV hydration was given. The patient's kidney function improved. She had chronic atrial fibrillation. Cardiology was consulted. The patient has been stable. Medications were resumed. Coumadin was continued. Yesterday, the patient INR was 2.6. She is on Coumadin 3 mg home dose. She will be discharged home to follow up with her primary care physician. I will discontinue the Rocephin. She received it for 5 days. This was discussed with the patient's daughter at bedside. User Experience Analyst recommended follow up with Hematology as an outpatient for possible flow cytometry that was explained to the patient. She is on chronic steroids for COPD that needs to be tapered off. She has opted to follow up in [place], where her daughter lives and all her physicians in [place]. MD JYOTI Valderrama/NENA /[id number]
--- NOTE | 2019-04-29 23:01 | Progress Note ---
DATE: 04/29/2019 Followup Note CHIEF COMPLAINT: The patient with thrombocytopenia of uncertain etiology. HISTORY OF PRESENTING ILLNESS: Ms. Gsaton is a very pleasant 78-year-old female, known history of hypertension, hyperlipidemia, diabetes mellitus, and atrial fibrillation on chronic anticoagulation, admitted due to nausea, vomiting, and diarrhea. She was also noted to have thrombocytopenia, which gradually got worse and subsequently Hematology-Oncology has been consulted. I have reviewed the record and discussed the plan with the patient. Overall, the cause of thrombocytopenia is uncertain, however, bone marrow suppression. I have recommended outpatient flow cytometry and followup. Apparently, the patient is not following up in [place] rather [place] is [place]. She will find local oncologist and have a workup locally. This has been discussed with the primary attending in detail. MD DWAIN Ignacio/NENA /[id number]
== END 2019-04-29 14:18 | disposition home or self-care (01) | DRG 872 ==
LOC: ICU 16:13 → MED/SURG3 04-25 17:50
PROVIDERS: ADMIT Internal Medicine; ATTEND Internal Medicine
DX: A41.9 Sepsis, unspecified organism (principal); N17.9 Acute kidney failure, unspecified; N39.0 Urinary tract infection, site not specified; K52.9 Noninfective gastroenteritis and colitis, unspecified; K75.81 Nonalcoholic steatohepatitis (NASH); K74.60 Unspecified cirrhosis of liver; D69.6 Thrombocytopenia, unspecified; I10 Essential (primary) hypertension; K80.20 Calculus of gallbladder without cholecystitis without obstruction; I48.2 Chronic atrial fibrillation; E11.9 Type 2 diabetes mellitus without complications; I48.91 Unspecified atrial fibrillation; Z79.01 Long term (current) use of anticoagulants; J44.9 Chronic obstructive pulmonary disease, unspecified; E78.5 Hyperlipidemia, unspecified
CPT/HCPCS: 36415; 76700; 80048; 81001; 82607; 82728; 82746; 82948; 83540; 83605; 84466; 85025; 85610; 85651; 87040; 87086; 93306; 94640; 94664; 97139; J0696; J2543; J3370; J7030; J7050; J7512

== ENCOUNTER 2020-07-20 09:44 | Emergency (ER) | payer MEDICARE ==
[~2020-07-20] VITALS: Ht 162.6 cm; Wt 74.4 kg
[~2020-07-20 09:44] MED LIST: ALLOPURINOL300 MG PO; BREO ELLIPTA 11 EACH IH; CALCITRIOL0.25 MCG PO; CARTIA XT180 MG PO; DIGOXIN125 MCG PO; FUROSEMIDE40 MG PO; GABAPENTIN300 MG PO; GLIPIZIDE5 MG PO; KLOR-CON M2020 MEQ PO; LEVOTHYROXINE50 MCG PO; METOPROLOL SUCC25 MG PO; PRAVASTATIN SOD40 MG PO; PREDNISONE5 MG PO; SPIRONOLACTONE25 MG PO; SYSTANE GEL EYE10 ML OU; VENLAFAXINE HCL75 MG PO; VITAMIN D1000 UNI1 PO; WARFARIN SODIUM1 MG PO; breo IH
[2020-07-20] MEDS ORDERED: ONDANSETRON HCL INJ 2MG/ML 2ML 2 MG/ML VIAL IV ONE (09:55)
[2020-07-20] MEDS ORDERED: PANTOPRAZOLE 40 MG 10ML VIAL IV ONE (09:55)
[2020-07-20] MEDS ORDERED: SODIUM CHLORIDE 0.9% 1000ML 1,000 ML IV ONE (09:55)
--- OUTSIDE RECORDS SUMMARY | 2020-07-20 10:07 | XMS REPORT | Continuity of Care Document ---
Author Author [facility] Organization [facility] Address [address] [place] [address] Phone Unavailable Care Team Providers Care Kier Boiler Name Role Phone Radha VALENTINE MD PCP Radha VALENTINE Attphys Unavailable ALEX, CARO Attphys Unavailable Radha VALENTINE Admphys Unavailable ALEXVANIA Admphys Unavailable Payers Payer Name Policy Type Policy Number Effective Date Expiration Date Radha WU [id number] 2019 00:00:00 [facility] Medicare A & B [id number] 2005 00:00:00 [facility] Problems Condition Name Condition Details Condition Category Status Onset Date Resolution Date Last Treatment Date Treating Clinician Comments Source Bronchopneumonia Bronchopneumonia Problem Active [facility] Severe sepsis Severe sepsis Problem Active [facility] Urinary tract infection UTI (urinary tract infection) Problem Active [facility] Allergies, Adverse Reactions, Alerts Allergy Name Allergy Type Status Severity Reaction(s) Onset Date Inacti ve Date Treating Clinician Comments Source Sulfa (Sulfonamide Antibiotics) Allergy to Substance Active Moder ate 2019-04-23 00:00:00 [facility] Codeine Allergy to Substance Active Moderate 2019-04-23 00:00:00 [facility] Medications Ordered Medication Name Filled Medication Name Start Date Stop Da te Current Medication? Ordering Clinician Indication Dosage Frequency Signature (SIG) Comments Components Source Allopurinol 300 Mg Tablet Allopurinol 300 Mg Tablet Yes 300 Daily [facility] Breo Breo Yes 100 [facility] Calcitriol 0.25 Mcg Capsule Calcitriol 0.25 Mcg Capsule Yes .25 Daily [facility] Cholecalciferol (Vitamin D3) (Vitamin D) 1,000 Unit [place] Cholecalciferol (Vitamin D3) (Vitamin D) 1,000 Unit Tablet Yes 21289 Once A Week On [facility] Digoxin 125 Mcg Tablet Digoxin 125 Mcg Tablet Yes .125 Daily [facility] Diltiazem Hcl (Cartia Xt) 180 Mg Cap.er.24h Diltiazem Hcl (Cartia Xt) 180 Mg Cap.er.24h Yes 180 Daily [facility] Furosemide 40 Mg Tablet Furosemide 40 Mg Tablet Yes 20 Daily [facility] Gabapentin 300 Mg Capsule Gabapentin 300 Mg Capsule Yes 300 Daily [facility] Glipizide 5 Mg Tablet Glipizide 5 Mg Tablet Yes 2.5 Daily [facility] Levothyroxine Sodium 50 Mcg Tablet Levothyroxine Sodium 50 Mcg Tablet Yes 150 Daily [facility] Metoprolol Succinate 25 Mg Tab.er.24h Metoprolol Succinate 25 Mg Ta b.er.24h Yes 25 Bedtime [facility] Potassium Chloride (Klor-Con M20) 20 Meq Tabcr Potassi um Chloride (Klor-Con M20) 20 Meq Tabcr Yes 20 Twice A Day C [facility] Pravastatin Sodium 40 Mg Tablet Pravastatin Sodium 40 Mg Tablet Yes 40 Bedtime [facility] Pravastatin Sodium 40 Mg Tablet Pravastatin Sodium 40 Mg Tablet Yes 40 Bedtime [facility] Prednisone 5 Mg Tablet Prednisone 5 Mg Tablet Yes 5 Daily [facility] Propylene Glycol/Peg 400 (Systane Gel Eye Drops) 10 Ml Drops.gel Propylene Glycol/Peg 400 (Systane Gel Eye Drops) 10 Ml Drops.gel Yes 1 Daily [facility] Spironolactone 25 Mg Tablet Spironolactone 25 Mg Tablet Yes 25 Daily [facility] Venlafaxine Hcl 75 Mg Tab Venlafaxine Hcl 75 Mg Tab Yes 150 Daily [facility] Warfarin Sodium 1 Mg Tablet Warfarin Sodium 1 Mg Tablet Yes 3 Daily@1700 [facility] Procedures Procedure Date / Time Performed Performing Clinician [facility] e X-ray of chest, two views 2019-09-09 00:00:00 WALKER CHANDLER CH, I [facility] US abdomen complete 2019-04-23 00:00:00 VANIA OJHNSON [facility] Encounters Start Date/Time End Date/Time Encounter Type Admission Type Attendi [facility] Care Department Encounter ID Source 2020-04-20 21:38:00 2020-04-20 21:38:00 Outpatient E [id number] 2019-09-05 01:01:00 2019-09-10 15:51:00 Discharged Inpatient 1 RAYMUNDO VALENTINE [facility] [id number] [facility] 2019-04-23 16:13:00 2019-04-29 14:18:00 Discharged Inpatient 3 VANIA JOHNSON [facility] [id number] [facility] Results Test Description Test Time Test Comments Results Result Comments Source Bedside Glucose 2019-09-10 11:50:00 Test Item Bedside Glucose (test code = 90514-3) 254 70-120 H Meter ID: [id number] [facility] Estimate 2019-09-10 09:45:00* Test Item Value Reference Range Interpretation Comments Platelet Estimate (test code = 90536-0) SLIGHTLY DECREASED [facility]Platelet Morphology Kvdnzar4414-85-38 09:45:00* Test Item Value Reference Range Interpretation Comments Platelet Morphology Comment (test code = 56325-6) FEW LARGE NO PLT CLUMPS SEEN ON SMEARThe Hospitals of Providence East CampusRed Cell Morphology Asdnpam7385-09-95 09:45:00* Test Item Value Reference Range Interpretation Comments Red Cell Morphology Comment (test code = 6742-1) [facility] Uxdmh0306-70-56 06:59:00* Test Item Value Reference Range Interpretation Comments Sodium Level (test code = 2951-2) 140 136-145 [facility] CampusPotassium Ountv6298-79-63 06:59:00* Test Item Value Reference Range Interpretation Comments Potassium Level (test code = 2823-3) 3.6 3.5-5.1 [facility] CampusChloride Jeree8948-10-25 06:59:00* Test Item Value Reference Range Interpretation Comments Chloride Level (test code = 2075-0) 101 98-107 [facility] CampusCarbon Dioxide Undmp7363-24-62 06:59:00* Test Item Value Reference Range Interpretation Comments Carbon Dioxide Level (test code = 2028-9) 29 22-29 [facility] CampusAnion Bxg7274-84-21 06:59:00* Test Item Value Reference Range Interpretation Comments Anion Gap (test code = 64905-9) 13.6 8-16 [facility] CampusBlood Urea Knpmubiu4312-80-02 06:59:00* Test Item Value Reference Range Interpretation Comments Blood Urea Nitrogen (test code = 3094-0) 19 7-26 [facility] CampusCreatinine2020-01-21 06:59:00* Test Item Value Reference Range Interpretation Comments Creatinine (test code = 2160-0) 0.78 0.57-1.11 [facility] CampusBUN/Creatinine Cqpir0086-69-75 06:59:00* Test Item Value Reference Range Interpretation Comments BUN/Creatinine Ratio (test code = 3097-3) 24 6-25 [facility] CampusEstimat Glomerular Filtration Rate 2019-09-10 06:59:00* Test Item Value Reference Range Interpretation Comments Estimat Glomerular Filtration Rate (test code = 523131360) > 60 >60 Ranges were taken from the National Kidney Disease Education Program and the [facility] Kid[facility] Foundation literature.Reference ranges:60 or greater: Ityxkm30-65 ( for 3 consecutive months): Chronic kidney disease 15 or less: Kidney failureThe Hospitals of Providence East CampusGlucose Gucha7150-26-08 06:59:00* Test Item Value Reference Range Interpretation Comments Glucose Level (test code = ZPG7697) 122 74-118 H [facility] CampusCalcium Msjxu6772-20-50 06:59:00* Test Item Value Reference Range Interpretation Comments Calcium Level (test code = 65805-2) 9.6 8.4-10.2 [facility] CampusProthrombin Errg0263-93-62 06:55:00* Test Item Value Reference Range Interpretation Comments Prothrombin Time (test code = 5902-2) 19.9 11.9-14.5 H [facility] CampusProthromb Time International Ratio 2019-09-10 06:55:00* Test Item Value Reference Range Interpretation Comments Prothromb Time International Ratio (test code = 6301-6) 1.62 Oral Anticoagulant Therapy INR Values:1. Low Intensity Therapy 1.5 - 2.02 . Moderate Intensity Therapy 2.0 - 3.03. High Intensity Therapy(1) 2.5 - 3. 54. High Intensity Therapy(2) 3.0 - 4.05. Panic Value INR > 5.0 [facility] CampusWhite Blood Kclqx4239-70-12 06:46:00* Test Item Value Reference Range Interpretation Comments White Blood Count (test code = 6690-2) 8.31 4.8-10.8 [facility] CampusRed Blood Syfjx0276-11-42 06:46:00* Test Item Value Reference Range Interpretation Comments Red Blood Count (test code = 789-8) 4.10 3.6-5.1 [facility] CampusHemoglobin2020-01-21 06:46:00* Test Item Value Reference Range Interpretation Comments Hemoglobin (test code = 81103-5) 12.6 12.0-16.0 [facility] CampusHematocrit2020-01-21 06:46:00* Test Item Value Reference Range Interpretation Comments Hematocrit (test code = 4544-3) 39.3 34.2-44.1 [facility] CampusMean Corpuscular Aokdha8903-42-97 06:46:00* Test Item Value Reference Range Interpretation Comments Mean Corpuscular Volume (test code = 787-2) 95.9 81-99 [facility] CampusMean Corpuscular Obtuejrphg7218-76-67 06:46:00* Test Item Value Reference Range Interpretation Comments Mean Corpuscular Hemoglobin (test code = 785-6) 30.7 28-32 [facility] CampusMean Corpuscular Hemoglobin Concent 2019-09-10 06:46:00* Test Item Value Reference Range Interpretation Comments Mean Corpuscular Hemoglobin Concent (test code = 786-4) 32.1 31-35 [facility] CampusRed Cell Distribution Yzmyf2692-13-72 06:46:00* Test Item Value Reference Range Interpretation Comments Red Cell Distribution Width (test code = 83709-6) 14.8 11.7 -14.4 H [facility] CampusPlatelet Ehnop2007-74-99 06:46:00* Test Item Value Reference Range Interpretation Comments Platelet Count (test code = 777-3) 139 140-360 L [facility] CampusNeutrophils (%) (Auto)2019-09-10 06:46:00 * Test Item Value Reference Range Interpretation Comments Neutrophils (%) (Auto) (test code = 07826-0) 68.2 38.7-80.0 [facility] CampusLymphocytes (%) (Auto)2019-09-10 06:46:00 * Test Item Value Reference Range Interpretation Comments Lymphocytes (%) (Auto) (test code = 736-9) 19.4 18.0-39.1 [facility] CampusMonocytes (%) (Auto)2019-09-10 06:46:00* Test Item Value Reference Range Interpretation Comments Monocytes (%) (Auto) (test code = 5905-5) 8.4 4.4-11.3 [facility] CampusEosinophils (%) (Auto)2019-09-10 06:46:00 * Test Item Value Reference Range Interpretation Comments Eosinophils (%) (Auto) (test code = 713-8) 2.2 0.0-6.0 [facility] CampusBasophils (%) (Auto)2019-09-10 06:46:00* Test Item Value Reference Range Interpretation Comments Basophils (%) (Auto) (test code = 706-2) 0.5 0.0-1.0 [facility] CampusIM GRANULOCYTES %2019-09-10 06:46:00* Test Item Value Reference Range Interpretation Comments IM GRANULOCYTES % (test code = IM GRANULOCYTES %) 1.3 0.0- 1.0 H [facility] CampusNeutrophils # (Auto)2019-09-10 06:46:00* Test Item Value Reference Range Interpretation Comments Neutrophils # (Auto) (test code = 751-8) 5.7 2.1-6.9 [facility] CampusLymphocytes # (Auto)2019-09-10 06:46:00* Test Item Value Reference Range Interpretation Comments Lymphocytes # (Auto) (test code = 36554-6) 1.6 1.0-3.2 [facility] CampusMonocytes # (Auto)2019-09-10 06:46:00* Test Item Value Reference Range Interpretation Comments Monocytes # (Auto) (test code = 742-7) 0.7 0.2-0.8 [facility] CampusEosinophils # (Auto)2019-09-10 06:46:00* Test Item Value Reference Range Interpretation Comments Eosinophils # (Auto) (test code = 711-2) 0.2 0.0-0.4 [facility] CampusBasophils # (Auto)2019-09-10 06:46:00* Test Item Value Reference Range Interpretation Comments Basophils # (Auto) (test code = 704-7) 0.0 0.0-0.1 [facility] CampusAbsolute Immature Granulocyte (auto 2019-09-10 06:46:00* Test Item Value Reference Range Interpretation Comments Absolute Immature Granulocyte (auto (marcela t code = Absolute Immature Granulocyte (auto) 0.11 0-0.1 H [facility] CampusBlood Colzazq4695-72-69 23:29:00* Test Item Value Reference Range Interpretation Comments Blood Culture (test code = 64465612) NO GROWTH AFTER 5 DAYS, FINAL REPORT [facility] CampusCHEST 2 CKVCS6428-07-51 08:04:00 [place] [address] Patient Name: PARMJIT RIZVI MR #: [id number] : 1940 Age/Sex: 79/F Req #: [id number] Adm Physician: RAYMUNDO VALENTINE MD Ordered by: WALKER CHANDLER MD Report #: [id number] Location: MED/SURG2 Room/Bed: [facility] Procedure: [id number] DX/CH EST 2 VIEWS Exam Date: 09/09/19 Exam Time: 0630 REPORT STATUS: Signed EXAMINATION: CHEST 2 VIEWS INDICATION: Community-acquired pneumonia. COMPARISON : 09/05/2019. FINDINGS: TUBES and LINES: None. LUNGS: Diffuse coarsening of the pulmonary interstitium. Patchy density in the left lower lob e has mildly decreased since the prior examination. PLEURA: Small left pleu ral effusion. No or pneumothorax. HEART AND MEDIASTINUM: The cardiomediast inal silhouette is unremarkable. There are atherosclerotic calcifications with in the aorta. BONES AND SOFT TISSUES: No acute osseous lesion. Soft tissu es are unremarkable. UPPER ABDOMEN: No free air under the diaphragm. IMPRESSION: Mild decrease in left lower lobe airspace disease. Recommend continued follow-up to resolution. Signed by: Dr. Mirta Milian i, M.D. on 09/09/2019 8:08 AM Dictated By: OMI florian Signed By: OMI GODINEZ MD, MD on 09/09/19807 Transcribed By: ROCHELLE on 09/09/19807 COPY TO: WALKER CHANDLER MD MODIFIED BA. SWALLOW 2019-09-06 14:48:00 [place] [address] Patient Name: PARMJIT RIZVI MR #: [id number] : 1940 Age/Sex: 79/F Req #: [id number] [facility] Physician: RAYMUNDO VALENTINE MD Ordered by: RAYMUNDO VALENTINE MD Report #: [id number] Location: MED/SURG2 Room/Bed: [facility] Procedure: [id number] DX /MODIFIED BA. SWALLOW Exam Date: 09/06/19 Exam Time: 1100 REPORT STATUS: Signed PROC EDURE: X-RAY MODIFIED BARIUM SWALLOW COMPARISON: None. INDICATION: As piration Radiation Details: Fluoroscopy time: 1.7 minutes Cumulative do se: 5.5 mGy DISCUSSION: Fluoroscopic examination was performed in conjuncti on with speech pathology during swallowing a variety of thin and thick liquid consistencies. Provided images demonstrate laryngeal penetration and silent as piration. CONCLUSION: Modified barium swallow demonstrating laryngeal p enetration and silent aspiration. Please refer to the speech pathology report for further details. Signed by: Valentina Garcia MD on 09/06/2019 2:48 PM Dictated By: VALENTINA GARCIA MD 1448 Transcribed By: ROCHELLE on 09/06/19 1448 COPY TO: RAYMUNDO VALENTINE Differential Total Cells Yvxccst6449-17-28 09:02:00* Test Item Value Reference Range Interpretation Comments Differential Total Cells Counted (test code = Differen tial Total Cells Counted) 100 [facility] CampusNeutrophils % (Manual)2019-09-06 09:02:00 * Test Item Value Reference Range Interpretation Comments Neutrophils % (Manual) (test code = 22112-6) 82 40-74 H [facility] CampusLymphocytes % (Manual)2019-09-06 09:02:00 * Test Item Value Reference Range Interpretation Comments Lymphocytes % (Manual) (test code = 737-7) 13 19-48 L [facility] CampusMonocytes % (Manual)2019-09-06 09:02:00* Test Item Value Reference Range Interpretation Comments Monocytes % (Manual) (test code = 744-3) 3 3.4-9.0 L [facility] CampusEosinophils % (Manual)2019-09-06 09:02:00 * Test Item Value Reference Range Interpretation Comments Eosinophils % (Manual) (test code = 714-6) 2 0-7 [facility] CampusTotal Bjzvhlcxh0340-89-65 05:55:00* Test Item Value Reference Range Interpretation Comments Total Bilirubin (test code = 1975-2) 0.8 0.2-1.2 [facility] CampusAspartate Amino Transf (AST/SGOT) 2019-09-06 05:55:00* Test Item Value Reference Range Interpretation Comments Aspartate Amino Transf (AST/SGOT) (test code = Aspartate Amino Transf (AST/SGOT)) 21 5-34 [facility] CampusAlanine Aminotransferase (ALT/SGPT) 2019-09-06 05:55:00* Test Item Value Reference Range Interpretation Comments Alanine Aminotransferase (ALT/SGPT) (test code = 1742-6) 32 0-55 [facility] CampusTotal Apfwlav7721-89-19 05:55:00* Test Item Value Reference Range Interpretation Comments Total Protein (test code = 2885-2) 5.2 6.5-8.1 L [facility] CampusAlbumin2020-01-17 05:55:00* Test Item Value Reference Range Interpretation Comments Albumin (test code = 1751-7) 2.6 3.5-5.0 L [facility] CampusGlobulin2020-01-17 05:55:00* Test Item Value Reference Range Interpretation Comments Globulin (test code = 92180-9) 2.6 2.3-3.5 [facility] CampusAlbumin/Globulin Aoojg0422-34-45 05:55:00 * Test Item Value Reference Range Interpretation Comments Albumin/Globulin Ratio (test code = 1759-0) 1.0 0.8-2.0 [facility] CampusAlkaline Tcuvgeutvwq8757-08-47 05:55:00* Test Item Value Reference Range Interpretation Comments Alkaline Phosphatase (test code = 6768-6) 57 40-150 [facility] CampusLactic Acid Vxjoz9083-90-12 16:16:00* Test Item Value Reference Range Interpretation Comments Lactic Acid Level (test code = Lactic Acid Level) 2.0 0.5- 2.0 [facility] CampusCreatine Kinase PA3411-89-41 13:41:00* Test Item Value Reference Range Interpretation Comments Creatine Kinase MB (test code = 97957-8) 1.80 0-5.0 [facility] CampusTroponin I0191-22-00 13:41:00* Test Item Value Reference Range Interpretation Comments Troponin I (test code = IRS3694) 0.031 0-0.300 [facility] CampusCreatine Cocqhi2134-44-32 13:32:00* Test Item Value Reference Range Interpretation Comments Creatine Kinase (test code = 2157-6) 48 29-168 [facility] CampusB-Type Natriuretic Ypdrmca8762-22-34 08:33:00* Test Item Value Reference Range Interpretation Comments B-Type Natriuretic Peptide (test code = 86722-2) 134.3 0-100 H [facility] CampusActivated Partial Thromboplast Time 2019-09-05 08:27:00* Test Item Value Reference Range Interpretation Comments Activated Partial Thromboplast Time (test code = 92715-6) 22.8 23.8-35.5 L [facility] CampusCHEST SINGLE (PORTABLE)2019-09-05 08:20:00 [facility] [address] [place] [address] Patient Name: PARMJIT RIZVI MR #: [id number] : 1940 Age/Sex: 79/F Req #: [id number] Adm Physician: RAYMUNDO VALENTINE MD Ordered by: MARK SKELTON MD Report #: [id number] [facility]: [facility] Room/Bed: ERHOLD-2 Procedure: 0116-0 018 DX/CHEST SINGLE (PORTABLE) Exam Date: 09/05/19 E xam Time: 07 REPORT STATUS: Anabell d Examination: Single AP view of the chest. COMPARISON: 09/04/2019 I NDICATION: Shortness of breath DISCUSSION: The lungs remain well- inflated. Interval worsening airspace disease in the left lower lobe with loss of the hemidiaphragmatic contour and new patchy opacity adjacent to the left heart border. No sizable pleural effusion or pneumothorax. Stable mild enla rgement of the cardiac silhouette without overt pulmonary edema. No acute osseous abnormality. IMPRESSION: Worsening left lower lobe airspace disease may reflect atelectasis, aspiration, or pneumonia in the correct clini tessie setting. Stable mild enlargement of the cardiac silhouette without over t pulmonary edema. Signed by: Dr. Walker Shaw M.D. on 09/05/2019 8:25 A M Dictated By: WALKER SHAW MD 4 Transcribed By: ROCHELLE on 09/05/19824 COPY TO: MARK VERDUZCO MD Urine QML7192-69-10 23:55:00* Test Item Value Reference Range Interpretation Comments Urine WBC (test code = 5821-4) 11-20 0-5 H [facility] CampusUrine EDW8848-42-93 23:55:00* Test Item Value Reference Range Interpretation Comments Urine RBC (test code = 16117-2) 6-10 0-5 H [facility] CampusUrine Sgpmqima9447-37-06 23:55:00* Test Item Value Reference Range Interpretation Comments Urine Bacteria (test code = 73789-0) MANY NONE H [facility] CampusUrine Epithelial Javoc2759-69-90 23:55:00 * Test Item Value Reference Range Interpretation Comments Urine Epithelial Cells (test code = 25571-0) FEW NONE [facility] CampusUrine Apuae0955-87-82 23:55:00* Test Item Value Reference Range Interpretation Comments Urine Mucus (test code = 8247-9) MODERATE RARE H [facility] CampusUrine Gzjkq7742-77-29 23:48:00* Test Item Value Reference Range Interpretation Comments Urine Color (test code = 5778-6) YELLOW YELLOW [facility] CampusUrine Cwiknrm7640-33-96 23:48:00* Test Item Value Reference Range Interpretation Comments Urine Clarity (test code = 45173-2) CLEAR CLEAR [facility] Specific Kqzpoap8158-24-13 23:48:00 * Test Item Value Reference Range Interpretation Comments Urine Specific [place] (test code = 5811-5) 1.025 1.010-1.02 5 [facility] sH0992-11-11 23:48:00* Test Item Value Reference Range Interpretation Comments Urine pH (test code = 82642-6) 5.5 5-7 [facility] CampusUrine Leukocyte Xwkrjfqa0598-42-84 23:48:00* Test Item Value Reference Range Interpretation Comments Urine Leukocyte Esterase (test code = 5799-2) NEGATIVE NEGATIVE [facility] CampusUrine Zsjsvqr6320-12-28 23:48:00* Test Item Value Reference Range Interpretation Comments Urine Nitrite (test code = 85205-3) NEGATIVE NEGATIVE [facility] CampusUrine Oynusdf3246-33-20 23:48:00* Test Item Value Reference Range Interpretation Comments Urine Protein (test code = 5804-0) 2+ NEGATIVE H [facility] CampusUrine Glucose (UA)2019-09-04 23:48:00* Test Item Value Reference Range Interpretation Comments Urine Glucose (UA) (test code = 2349-9) 3+ NEGATIVE H [facility] CampusUrine Zxiiyyf8159-48-51 23:48:00* Test Item Value Reference Range Interpretation Comments Urine Ketones (test code = 82322-3) NEGATIVE NEGATIVE [facility] CampusUrine Glmidpwqvspw9555-87-81 23:48:00* Test Item Value Reference Range Interpretation Comments Urine Urobilinogen (test code = 49966-7) 0.2 0.2-1 [facility] CampusUrine Abclssjhr3480-24-50 23:48:00* Test Item Value Reference Range Interpretation Comments Urine Bilirubin (test code = 1978-6) NEGATIVE NEGATIVE [facility] CampusUrine Kkhvs7353-97-60 23:48:00* Test Item Value Reference Range Interpretation Comments Urine Blood (test code = 97073-5) NEGATIVE NEGATIVE [facility] CampusInfluenza Virus Types A,B Antigen 2019-09-04 22:47:00* Test Item Value Reference Range Interpretation Comments Influenza Virus Types A,B Antigen (test code = 55701-4) NEGATIVE NEGATIVE [facility] A IgM Qpjvqqwf9211-81-18 13:41:00* Test Item Value Reference Range Interpretation Comments Hepatitis A IgM Antibody (test code = 31046-0) Negative Negativ e [facility] B Surface Gqcpxcf6513-02-68 13:41:00* Test Item Value Reference Range Interpretation Comments Hepatitis B Surface Antigen (test code = 5196-1) Negative Negat gordo [facility] B Core IgM Fwnyvexp4198-75-77 13:41:00* Test Item Value Reference Range Interpretation Comments Hepatitis B Core IgM Antibody (test code = 21314-1) Negative [facility] Olllghnw5583-50-57 13:41:00* Test Item Value Reference Range Interpretation Comments Hepatitis C Antibody (test code = 97430-4) <0.1 0.0-0.9 Negative: < 0.8 Indeterminate: 0.8 - 0.9 Positive: > 0.9 The CDC recommends that a positive HCV antibody result be followed up with a HCV Nucleic Acid Amplification test (696087).Performed at: [facility] Lab[address] [id number] Director: Yogesh Acosta MD, Phone: [phone] Hospitals of [facility] CampusBedside Yzxrnfk0334-29-98 11:34:00* Test Item Value Reference Range Interpretation Comments Bedside Glucose (test code = 00279-4) 255 70-120 H Meter ID: [id number] Hospitals of Providence East CampusProthrombin Time 2019-04-29 11:25:00* Test Item Value Reference Range Interpretation Comments Prothrombin Time (test code = 5902-2) 25.6 11.9-14.5 H [facility] CampusProthromb Time International Ratio 2019-04-29 11:25:00* Test Item Value Reference Range Interpretation Comments Prothromb Time International Ratio (test code = 6301-6) 2.25 Oral Anticoagulant Therapy INR Values:1. Low Intensity Therapy 1.5 - 2.02 . Moderate Intensity Therapy 2.0 - 3.03. High Intensity Therapy(1) 2.5 - 3. 54. High Intensity Therapy(2) 3.0 - 4.05. Panic Value INR > 5.0 [facility] CampusPlatelet Ruhpeavm0865-24-36 09:14:00* Test Item Value Reference Range Interpretation Comments Platelet Estimate (test code = 73135-5) SLIGHTLY DECREASED [facility] CampusClumped Boswiijae5503-61-99 09:14:00* Test Item Value Reference Range Interpretation Comments Clumped Platelets (test code = 7796-6) NONE NONE [facility] CampusClumped Wymziwfgr7745-47-24 09:14:00* Test Item Value Reference Range Interpretation Comments Clumped Platelets (test code = 7796-6) NONE NONE [facility] CampusWhite Blood Eklrk6656-83-75 07:07:00* Test Item Value Reference Range Interpretation Comments White Blood Count (test code = 6690-2) 7.32 4.8-10.8 [facility] CampusRed Blood Rgfsd2380-73-00 07:07:00* Test Item Value Reference Range Interpretation Comments Red Blood Count (test code = 789-8) 4.70 3.6-5.1 [facility] CampusHemoglobin2019-09-09 07:07:00* Test Item Value Reference Range Interpretation Comments Hemoglobin (test code = 93056-7) 14.6 12.0-16.0 [facility] CampusHematocrit2019-09-09 07:07:00* Test Item Value Reference Range Interpretation Comments Hematocrit (test code = 4544-3) 43.7 34.2-44.1 [facility] CampusMean Corpuscular Qimvfg5542-97-93 07:07:00* Test Item Value Reference Range Interpretation Comments Mean Corpuscular Volume (test code = 787-2) 93.0 81-99 [facility] CampusMean Corpuscular Lrxwjyxoia2766-13-19 07:07:00* Test Item Value Reference Range Interpretation Comments Mean Corpuscular Hemoglobin (test code = 785-6) 31.1 28-32 [facility] Concent 2019-04-29 07:07:00* Test Item Value Reference Range Interpretation Comments Mean Corpuscular Hemoglobin Concent (test code = 786-4) 33.4 31-35 [facility] CampusRed Cell Distribution Eoulr1980-79-01 07:07:00* Test Item Value Reference Range Interpretation Comments Red Cell Distribution Width (test code = 16235-1) 15.4 11.7 -14.4 H [facility] CampusPlatelet Qrynb2126-61-38 07:07:00* Test Item Value Reference Range Interpretation Comments Platelet Count (test code = 777-3) 122 140-360 L [facility] CampusNeutrophils (%) (Auto)2019-04-29 07:07:00 * Test Item Value Reference Range Interpretation Comments Neutrophils (%) (Auto) (test code = 79262-4) 55.6 38.7-80.0 [facility] CampusLymphocytes (%) (Auto)2019-04-29 07:07:00 * Test Item Value Reference Range Interpretation Comments Lymphocytes (%) (Auto) (test code = 736-9) 31.1 18.0-39.1 [facility] CampusMonocytes (%) (Auto)2019-04-29 07:07:00* Test Item Value Reference Range Interpretation Comments Monocytes (%) (Auto) (test code = 5905-5) 9.2 4.4-11.3 [facility] CampusEosinophils (%) (Auto)2019-04-29 07:07:00 * Test Item Value Reference Range Interpretation Comments Eosinophils (%) (Auto) (test code = 713-8) 2.2 0.0-6.0 [facility] CampusBasophils (%) (Auto)2019-04-29 07:07:00* Test Item Value Reference Range Interpretation Comments Basophils (%) (Auto) (test code = 706-2) 0.4 0.0-1.0 [facility] CampusIM GRANULOCYTES %2019-04-29 07:07:00* Test Item Value Reference Range Interpretation Comments IM GRANULOCYTES % (test code = IM GRANULOCYTES %) 1.5 0.0- 1.0 H [facility] CampusNeutrophils # (Auto)2019-04-29 07:07:00* Test Item Value Reference Range Interpretation Comments Neutrophils # (Auto) (test code = 751-8) 4.1 2.1-6.9 [facility] CampusLymphocytes # (Auto)2019-04-29 07:07:00* Test Item Value Reference Range Interpretation Comments Lymphocytes # (Auto) (test code = 82972-8) 2.3 1.0-3.2 [facility] CampusMonocytes # (Auto)2019-04-29 07:07:00* Test Item Value Reference Range Interpretation Comments Monocytes # (Auto) (test code = 742-7) 0.7 0.2-0.8 [facility] CampusEosinophils # (Auto)2019-04-29 07:07:00* Test Item Value Reference Range Interpretation Comments Eosinophils # (Auto) (test code = 711-2) 0.2 0.0-0.4 [facility] CampusBasophils # (Auto)2019-04-29 07:07:00* Test Item Value Reference Range Interpretation Comments Basophils # (Auto) (test code = 704-7) 0.0 0.0-0.1 [facility] CampusAbsolute Immature Granulocyte (auto 2019-04-29 07:07:00* Test Item Value Reference Range Interpretation Comments Absolute Immature Granulocyte (auto (marcela t code = Absolute Immature Granulocyte (auto) 0.11 0-0.1 [facility]odium Vyaye3948-69-35 06:54:00* Test Item Value Reference Range Interpretation Comments Sodium Level (test code = 2951-2) 143 136-145 [facility] CampusPotassium Tmrvw2059-91-58 06:54:00* Test Item Value Reference Range Interpretation Comments Potassium Level (test code = 2823-3) 3.3 3.5-5.1 L [facility] CampusChloride Rwkac4011-20-07 06:54:00* Test Item Value Reference Range Interpretation Comments Chloride Level (test code = 2075-0) 104 98-107 [facility] CampusCarbon Dioxide Ezhgb8371-50-23 06:54:00* Test Item Value Reference Range Interpretation Comments Carbon Dioxide Level (test code = 2028-9) 26 22-29 [facility] CampusAnion Sue7519-66-47 06:54:00* Test Item Value Reference Range Interpretation Comments Anion Gap (test code = 31506-5) 16.3 8-16 H [facility] CampusBlood Urea Jkwrolbe6422-45-74 06:54:00* Test Item Value Reference Range Interpretation Comments Blood Urea Nitrogen (test code = 3094-0) 22 7-26 [facility] CampusCreatinine2019-09-09 06:54:00* Test Item Value Reference Range Interpretation Comments Creatinine (test code = 2160-0) 0.83 0.57-1.11 [facility] CampusBUN/Creatinine Uczve3971-70-39 06:54:00* Test Item Value Reference Range Interpretation Comments BUN/Creatinine Ratio (test code = 3097-3) 27 6-25 H [facility] CampusEstimat Glomerular Filtration Rate 2019-04-29 06:54:00* Test Item Value Reference Range Interpretation Comments Estimat Glomerular Filtration Rate (test code = 508095087) > 60 >60 Ranges were taken from the National Kidney Disease Education Program and the [facility] Kidney Foundation literature.Reference ranges:60 or greater: Vbjfxm76-99 ( for 3 consecutive months): Chronic kidney disease 15 or less: Kidney failureThe Hospitals of Providence East CampusGlucose Yemep2103-15-82 06:54:00* Test Item Value Reference Range Interpretation Comments Glucose Level (test code = KDV5825) 109 74-118 [facility] CampusCalcium Gfasv4668-16-33 06:54:00* Test Item Value Reference Range Interpretation Comments Calcium Level (test code = 07644-3) 10.3 8.4-10.2 H [facility] CampusBlood Yyyufrk4100-41-56 17:10:00* Test Item Value Reference Range Interpretation Comments Blood Culture (test code = 59321372) NO GROWTH AFTER 5 DAYS, FINAL REPORT [facility] CampusVitamin B12 Cchsu7508-23-94 12:05:00* Test Item Value Reference Range Interpretation Comments Vitamin B12 Level (test code = 93817-3) 457 213-816 [facility] CampusFolate2019-09-08 12:05:00* Test Item Value Reference Range Interpretation Comments Folate (test code = 2284-8) 28.2 7.0-15.4 H [facility] CampusVitamin B12 Zsvbm8296-32-10 12:05:00* Test Item Value Reference Range Interpretation Comments Vitamin B12 Level (test code = 17167-1) 457 213-816 [facility] CampusFolate2019-09-08 12:05:00* Test Item Value Reference Range Interpretation Comments Folate (test code = 2284-8) 28.2 7.0-15.4 H [facility] CampusErythrocyte Sedimentation Puyz7107-22-99 10:40:00* Test Item Value Reference Range Interpretation Comments Erythrocyte Sedimentation Rate (test code = 4537-7) 9 0- 20 [facility] CampusErythrocyte Sedimentation Ybhr9828-50-38 10:40:00* Test Item Value Reference Range Interpretation Comments Erythrocyte Sedimentation Rate (test code = 4537-7) 9 0- 20 [facility] CampusFerritin2019-09-08 10:24:00* Test Item Value Reference Range Interpretation Comments Ferritin (test code = 2276-4) 103.48 4.63-204.00 [facility] CampusFerritin2019-09-08 10:24:00* Test Item Value Reference Range Interpretation Comments Ferritin (test code = 2276-4) 103.48 4.63-204.00 [facility] CampusIron Jrjoz5650-13-32 09:32:00* Test Item Value Reference Range Interpretation Comments Iron Level (test code = 2498-4) 75 50-170 [facility] CampusTotal Iron Binding Usxnechq2261-63-98 09:32:00* Test Item Value Reference Range Interpretation Comments Total Iron Binding Capacity (test code = 2500-7) 318 261-4 78 [facility] CampusPercent Iron Qwmpnxytdh3775-65-99 09:32:00* Test Item Value Reference Range Interpretation Comments Percent Iron Saturation (test code = 2502-3) 24 15-50 [facility] CampusTransferrin2019-09-08 09:32:00* Test Item Value Reference Range Interpretation Comments Transferrin (test code = 3034-6) 227 180-382 [facility]2019-09-08 09:32:00* Test Item Value Reference Range Interpretation Comments Iron Level (test code = 2498-4) 75 50-170 [facility] Iron Binding Pwuxlgyk2543-45-14 09:32:00* Test Item Value Reference Range Interpretation Comments Total Iron Binding Capacity (test code = 2500-7) 318 261-4 78 [facility] CampusPercent Iron Mevliadyrz6329-19-23 09:32:00* Test Item Value Reference Range Interpretation Comments Percent Iron Saturation (test code = 2502-3) 24 15-50 [facility] CampusTransferrin2019-09-08 09:32:00* Test Item Value Reference Range Interpretation Comments Transferrin (test code = 3034-6) 227 180-382 [facility] CampusDifferential Total Cells Counted 2019-04-27 08:57:00* Test Item Value Reference Range Interpretation Comments Differential Total Cells Counted (test code = Differen tial Total Cells Counted) 100 [facility] CampusNeutrophils % (Manual)2019-04-27 08:57:00 * Test Item Value Reference Range Interpretation Comments Neutrophils % (Manual) (test code = 99269-4) 60 40-74 [facility] CampusLymphocytes % (Manual)2019-04-27 08:57:00 * Test Item Value Reference Range Interpretation Comments Lymphocytes % (Manual) (test code = 737-7) 28 19-48 [facility] CampusMonocytes % (Manual)2019-04-27 08:57:00* Test Item Value Reference Range Interpretation Comments Monocytes % (Manual) (test code = 744-3) 10 3.4-9.0 H [facility] CampusEosinophils % (Manual)2019-04-27 08:57:00 * Test Item Value Reference Range Interpretation Comments Eosinophils % (Manual) (test code = 714-6) 2 0-7 [facility] CampusPlatelet Morphology Gocfont7042-08-13 08:57:00* Test Item Value Reference Range Interpretation Comments Platelet Morphology Comment (test code = 79564-2) FEW GIANT [facility] CampusRed Cell Morphology Xjdcoji9655-98-01 08:57:00* Test Item Value Reference Range Interpretation Comments Red Cell Morphology Comment (test code = 6742-1) NORMAL [facility] CampusLactic Acid Nsugl9049-06-12 10:08:00* Test Item Value Reference Range Interpretation Comments Lactic Acid Level (test code = Lactic Acid Level) 16.7 4.5- 19.8 [facility] CampusUrine YHJ8346-68-58 10:01:00* Test Item Value Reference Range Interpretation Comments Urine WBC (test code = 5821-4) 11-20 0-5 H [facility] CampusUrine KKA4421-45-80 10:01:00* Test Item Value Reference Range Interpretation Comments Urine RBC (test code = 67498-0) 6-10 0-5 H [facility] CampusUrine Lzslzuir4199-92-29 10:01:00* Test Item Value Reference Range Interpretation Comments Urine Bacteria (test code = 33697-1) MODERATE NONE H [facility] CampusUrine Epithelial Vawub3584-99-57 10:01:00 * Test Item Value Reference Range Interpretation Comments Urine Epithelial Cells (test code = 32115-2) MODERATE NONE [facility] CampusUrine Amorphous Ckarzfno8377-68-72 10:01:00* Test Item Value Reference Range Interpretation Comments Urine Amorphous Sediment (test code = 8246-1) FEW FEW [facility] CampusUrine Amorphous Tgrurmzv9809-78-77 10:01:00* Test Item Value Reference Range Interpretation Comments Urine Amorphous Sediment (test code = 8246-1) FEW FEW [facility] CampusUrine Ktrfm1131-35-98 09:50:00* Test Item Value Reference Range Interpretation Comments Urine Color (test code = 5778-6) YELLOW YELLOW [facility] CampusUrine Ebzxyqe5381-99-11 09:50:00* Test Item Value Reference Range Interpretation Comments Urine Clarity (test code = 98005-0) CLEAR CLEAR [facility] CampusUrine Specific Jvkekbp1612-67-13 09:50:00 * Test Item Value Reference Range Interpretation Comments Urine Specific [place] (test code = 5811-5) 1.015 1.010-1.02 5 [facility] CampusUrine eS8777-63-10 09:50:00* Test Item Value Reference Range Interpretation Comments Urine pH (test code = 29999-6) 6 5-7 [facility] CampusUrine Leukocyte Ynersmoi1050-59-54 09:50:00* Test Item Value Reference Range Interpretation Comments Urine Leukocyte Esterase (test code = 22384-8) NEGATIVE NEGATIV E [facility] CampusUrine Wctnsfc9885-96-07 09:50:00* Test Item Value Reference Range Interpretation Comments Urine Nitrite (test code = 72181-4) NEGATIVE NEGATIVE [facility] CampusUrine Hwsnsbl6646-43-06 09:50:00* Test Item Value Reference Range Interpretation Comments Urine Protein (test code = 90714-4) NEGATIVE NEGATIVE [facility] CampusUrine Glucose (UA)2019-04-24 09:50:00* Test Item Value Reference Range Interpretation Comments Urine Glucose (UA) (test code = 89079-4) NEGATIVE NEGATIVE [facility] CampusUrine Yvemkeo6624-52-34 09:50:00* Test Item Value Reference Range Interpretation Comments Urine Ketones (test code = 53793-4) NEGATIVE NEGATIVE [facility] CampusUrine Jhrqyxnonnpo0608-39-75 09:50:00* Test Item Value Reference Range Interpretation Comments Urine Urobilinogen (test code = 18611-9) 0.2 0.2-1 [facility] CampusUrine Simuaqmaq7903-06-93 09:50:00* Test Item Value Reference Range Interpretation Comments Urine Bilirubin (test code = 1977-8) NEGATIVE NEGATIVE [facility] CampusUrine Fnvsg0222-32-76 09:50:00* Test Item Value Reference Range Interpretation Comments Urine Blood (test code = 52461-6) 1+ NEGATIVE [facility] CampusUS ABDOMEN NOVHXIVE9902-29-72 18:10:00 [facility] [address] [place] [address] Patient Name: PARMJIT RIZVI MR #: [id number] : 1940 Age/Sex: 78/F Req #: [id number] [facility] Physician: VANIA JOHNSON MD Ordered by: VANIA JOHNSON MD Report #: [id number] Location: ICU Room/Bed: [place] [address] Procedure: [id number] US/US ABDOMEN COMPLETE Exam Date: 04/23/19 Exam Time : 1745 REPORT STATUS: Signed EXA MINATION: Abdominal ultrasound. CLINICAL INDICATION: Nausea vomiting C OMPARISON: None DISCUSSION: Transverse and longitudinal images of the upper abdomen were obtained. The liver is normal in size measuring 13.9 centimeters in length in the right midclavicular line and shows normal echoge nicity. No focal masses are seen in the liver. There is no intrahepatic biliary dilatation. The common bile duct measures 0.2 cm. The main portal vein measures 1.1 cm. The gallbladder contains gallstones. No wall thickening. Pierce's sign negative. The visualized portions of the pancreatic body are unremarkable. The spleen is normal in echogenicity and size measuring 9.7 centimeters in length. The right kidney measures 8.9 centimeters in audelia th and the left kidney measures 9.4 centimeters. There is normal renal cortica l echogenicity and no hydronephrosis, solid mass or shadowing calculi. 1.8 cm simple left renal cyst. The visualized portions of the great vessels are no rmal. No free fluid is seen. IMPRESSION: Cholelithiasis with out inflammatory change Signed by: Dr. Reno Rios M.D. on 04/23/2019 6:1 3 PM Dictated By: RENO RIOS MD 12 Transcribed By: ROCHELLE on 04/23/191812 COPY TO: VANIA JOHNSON MD
[2020-07-20] MEDS ORDERED: DEXAMETHASONE SOD PHOS 10 MG/1 ML VIAL IV ONE (10:15)
[2020-07-20 10:33] LABS: BASOPHILS % 0.3 % (0.0-1.0); HEMOGLOBIN 14.6 g/dL (12.0-16.0); LYMPHOCYTES # (AUTO) 1.2 (1.0-3.2); LYMPHOCYTES % 15.8 % (18.0-39.1); MEAN CORPUSCULAR HEMOGLOBIN 29.4 pg (28-32); MEAN CORPUSCULAR HGB CONC 33.2 g/dL (31-35); MEAN CORPUSCULAR VOLUME 88.5 fL (81-99); MONOCYTES # (AUTO) 0.7 (0.2-0.8); MONOCYTES % 8.5 % (4.4-11.3); NEUTROPHILS # (AUTO) 5.9 (2.1-6.9); NEUTROPHILS % 74.8 % (38.7-80.0); PLATELET COUNT 120 x10e3/uL (140-360); RED BLOOD COUNT 4.97 x10e6/uL (3.6-5.1); RED CELL DISTRIBUTION WIDTH 15.7 % (11.7-14.4)
[2020-07-20] MEDS ORDERED: PIPER-TAZ 3.375 GM 50 ML ONE (10:41)
--- NOTE | 2020-07-20 10:41 | NUR ---
med rec done, pt states all her meds, "are the same as last time." went over with pt and she again stated, "they didnt change."
--- NOTE | 2020-07-20 10:42 | Emergency Department Note ---
History of Present Illnes History of Present Illness Chief Complaint: COVID PUI History of Present Illness This is a 80 year old female Patient in from home via EMS with reports of shortness of breath, fever, nausea and vomiting that started yesterday. Per EMS report the patient had an oxygen saturation of 92% at home but is 96% in triage. Patient reports persistent nausea and vomiting since yesterday and has been unable to keep anything, including her medications down. Patient is afebrile in triage. 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 Any updates have been documented here. Past Medical History Recent Fever: Yes Clinical Suspicion of Infectio: Yes New/Unexplained Change in Ment: No Past Medical History: Hypertension, Diabetes, COPD, CHF, A-Fib, CAD, UTI's Other Medical History: dementia Past Surgical History: Hysterectomy Other Surgery: AAA Social History Smoking Cessation: Former smoker Counseling Performed: No Alcohol Use: None Any Illegal Drug Use: No TB Exposure/Symptoms: No Physically hurt or threatened: No Family History Family history of heart diseas: No Other Last Tetanus: UNKNOWN Any Pre-Existing Lines (PICC,: No Review of Systems Review of Systems Constitutional: Reports no symptoms EENTM: Reports no symptoms Cardiovascular: Reports no symptoms Respiratory: Reports as per HPI Gastrointestinal: Reports as per HPI Genitourinary: Reports no symptoms Musculoskeletal: Reports no symptoms Integumentary: Reports no symptoms Neurological: Reports no symptoms Psychological: Reports no symptoms Endocrine: Reports no symptoms Hematological/Lymphatic: Reports no symptoms Physical Exam Related Data Allergies: Coded Allergies: Sulfa (Sulfonamide Antibiotics) (Verified Allergy, Intermediate, 04/23/19) codeine (Verified Allergy, Intermediate, 04/23/19) Triage Vital Signs Vital Signs Date Time Temp Pulse Resp B/P (MAP) Pulse Ox O2 Delivery O2 Flow Rate FiO2 07/20/20 09:53 98.6 82 26 167/92 96 Room Air Vital signs reviewed: Yes Physical Exam CONSTITUTIONAL Constitutional: Present well-developed, Present well-nourished HENT HENT: Present normocephalic, Present atraumatic, Present mucosae dry, Present nose normal HENT L/R: Present left ext ear normal, Present right ext ear normal EYES Eyes: Reports PERRL, Reports conjunctivae normal NECK Neck: Present ROM normal PULMONARY Pulmonary: Present effort normal, Present other (DECREASED BS's THROUGHOUT) CARDIOVASCULAR Cardiovascular: Present irregular rhythm, Present heart sounds normal, Present capillary refill normal, Present normal rate GASTROINTESTINAL Abdominal: Present soft, Present nontender, Present bowel sounds normal; Absent tender, Absent guarding, Absent mass, Absent rebound GENITOURINARY Genitourinary: Present exam deferred SKIN Skin: Present warm, Present dry MUSCULOSKELETAL Musculoskeletal: Present ROM normal NEUROLOGICAL Neurological: Present alert, Present oriented x 3, Present no gross motor or sensory deficits PSYCHOLOGICAL Psychological: Present mood/affect normal, Present judgement normal Results Laboratory Lab results reviewed: Yes Imaging Imaging results reviewed: Yes Impressions EXAMINATION: CHEST SINGLE (PORTABLE) INDICATION: Shortness of breath, fever COMPARISON: Chest are graft 09/09/2019 FINDINGS: LINES/TUBES:None LUNGS:The lungs are well-inflated. No focal consolidation or pulmonary edema. PLEURA:No pleural effusion or pneumothorax. MEDIASTINUM:The cardiomediastinal silhouette appears normal in size and shape. Atherosclerotic calcifications of the thoracic aorta. BONES/SOFT TISSUES:No acute osseous injury. ABDOMEN:No free air under the diaphragm. IMPRESSION: No focal pneumonia or pulmonary edema. Signed by: Adrian Gallegos MD on 07/20/2020 10:52 AM Procedures 12 Lead ECG Interpretation ECG Interpretation : ECG: ECG 1 Re Etcher: Interpreted by ED physician Date: Jul 20, 2020 Time: 10:02 Rhythm: atrial fibrillation Rate: normal BPM: 76 QRS axis: normal ST segments normal: Yes T wave inversion: II, aVF T waves flattening: I, III, aVL Clinical Impression: abnormal ECG Assessment & Plan Medical Decision Making MDM N/V, FEVER, SOB WITH O2 SAT 92% ON RA BY EMS - CBC, CHEM, ECG, CARDIACS, BNP, BLOOD CX'S, CXR, RAPID FLU, COVID, UA/CX - R/O COVID19, PNEUMONIA, STEMI/NSTEMI, CHF, ELECTROLYTE ABNL, DEHYDRATION, RENAL INSUFF, UTI Reassessment Reassessment PT WITH H/O SEPSIS THOUGHT DUE TO ASPIRATION PNEUMONIA, LABS AND CXR PENDING - WILL EMPIRICALLY COVER WITH ZOSYN AND AZITHROMYCIN. TRANSFER INITIATED, NO COVID BEDS AVAILABLE HERE. I SPOKE WITH DR DRISCOLL AT [facility] WHO ACCEPTED PT FOR TRANSFER Assessment & Plan Final Impression: (1) COVID-19 (2) Vomiting (3) Dehydration Depart Disposition: TRANS TO OTHER [facility] F[facility] Last Vital Signs Date Time Temp Pulse Resp B/P (MAP) Pulse Ox O2 Delivery O2 Flow Rate FiO2 07/20/20 10:10 99.1 79 22 167/83 96 Room Air Home Meds Reported Medications Pravastatin Sodium (PRAVASTATIN SODIUM) 40 Mg Tablet, 40 MG PO HS 04/23/19 Glipizide (GLIPIZIDE) 5 Mg Tablet, 2.5 MG PO DAILY, TAB 04/23/19 Warfarin Sodium (WARFARIN SODIUM) 1 Mg Tablet, 3 MG PO DAILY@1700, #30 TAB 04/23/19 Propylene Glycol/Peg 400 (SYSTANE GEL EYE DROPS) 10 Ml Drops.gel, 1 DROP OU DAILY 04/23/19 [breo] No Conflict Check, 100 MCG IH 04/23/19 Metoprolol Succinate (METOPROLOL SUCCINATE) 25 Mg Tab.er.24h, 25 MG PO HS 04/23/19 Diltiazem Hcl (CARTIA XT) 180 Mg Cap.er.24h, 180 MG PO DAILY 04/23/19 Potassium Chloride (KLOR-CON M20) 20 Meq Tabcr, 20 MEQ PO BID 04/23/19 Venlafaxine Hcl (VENLAFAXINE HCL) 75 Mg Tab, 150 MG PO DAILY, #30 TAB 04/23/19 Spironolactone (SPIRONOLACTONE) 25 Mg Tablet, 25 MG PO DAILY, #60 TAB 04/23/19 Gabapentin (GABAPENTIN) 300 Mg Capsule, 300 MG PO DAILY, #60 CAP 04/23/19 Digoxin (DIGOXIN) 125 Mcg Tablet, 0.125 MG PO DAILY, #30 TAB 04/23/19 Calcitriol (CALCITRIOL) 0.25 Mcg Capsule, 0.25 MG PO DAILY, #30 TAB 04/23/19 Furosemide (FUROSEMIDE) 40 Mg Tablet, 20 MG PO Daily, #30 TAB 04/23/19 Allopurinol (ALLOPURINOL) 300 Mg Tablet, 300 MG PO DAILY, #30 TAB 04/23/19 Levothyroxine Sodium (LEVOTHYROXINE SODIUM) 50 Mcg Tablet, 150 MCG PO DAILY, #30 TAB 04/23/19 Discontinued Reported Medications Cholecalciferol (Vitamin D3) (VITAMIN D) 1,000 Unit Tablet, 37430 UNIT PO ONCE A WEEK ON , #30 TAB 04/26/19 Pravastatin Sodium (PRAVASTATIN SODIUM) 40 Mg Tablet, 40 MG PO HS 04/26/19 Discontinued Scripts Fluticasone/Vilanterol (Breo Ellipta 100-25 Mcg INH) 1 Each Blst.w.dev, 1 INH IH ACB for 30 Days Prov:WALKER CHANDLER MD 09/10/19 Prednisone (PREDNISONE) 5 Mg Tablet, 2.5 MG PO DAILY, #30 MG Prov:WALKER CHANDLER MD 09/10/19 Medications in the ED Pantoprazole Sodium 40 mg ONCE ONCE IV ; Start 07/20/20 at 09:55; Stop 07/20/20 at 10:04; Status DC Ondansetron HCl 4 mg ONCE ONCE IV ; Start 07/20/20 at 09:55; Stop 07/20/20 at 10:04; Status DC Sodium Chloride 1,000 ml @ 0 mls/hr Q0M ONCE IV ; Start 07/20/20 at 09:55; Stop 07/20/20 at 10:04; Status DC Dexamethasone Sodium Phosphate 10 mg ONCE ONCE IV ; Start 07/20/20 at 10:15; Stop 07/20/20 at 10:16; Status DC GRACY HERNANDEZ MD Jul 20, 2020 10:42
[2020-07-20] MEDS ORDERED: AZITHROMYCIN 500MG/NS 250 ML 250 ML IV ONE (10:45)
[2020-07-20] MEDS ORDERED: PIPER-TAZ 3.375 GM 50 ML IV ONE (10:45)
[2020-07-20 10:53] LABS: INR 1.68; PROTHROMBIN TIME 20.6 seconds (11.9-14.5)
--- NOTE | 2020-07-20 10:55 | Diagnostic Imaging Report ---
EXAMINATION: CHEST SINGLE (PORTABLE) INDICATION: Shortness of breath, fever COMPARISON: Chest are graft 09/09/2019 FINDINGS: LINES/TUBES:None LUNGS:The lungs are well-inflated. No focal consolidation or pulmonary edema. PLEURA:No pleural effusion or pneumothorax. MEDIASTINUM:The cardiomediastinal silhouette appears normal in size and shape. Atherosclerotic calcifications of the thoracic aorta. BONES/SOFT TISSUES:No acute osseous injury. ABDOMEN:No free air under the diaphragm. IMPRESSION: No focal pneumonia or pulmonary edema. Signed by: Adrian Gallegos MD on 07/20/2020 10:52 AM
[2020-07-20 11:02] LABS: ALBUMIN 3.3 g/dL (3.5-5.0); ANION GAP 16.8 mmol/L (8-16); CREATININE, SERUM 1.03 mg/dL (0.57-1.11); POTASSIUM 3.8 mmol/L (3.5-5.1)
[2020-07-20 11:43] LABS: MAGNESIUM 1.1 MG/DL (1.3-2.1)
[2020-07-20 11:46] LABS: CREATINE KINASE MB 1.5 ng/mL (0-5.0)
[2020-07-20] MEDS ORDERED: MAGNESIUM SULFATE 2GM/50ML 50 ML IV ONE (12:15)
--- NOTE | 2020-07-20 12:29 | NUR ---
ATTEMPTED REPORT, "NURSE CAN'T TAKE REPORT, IN AN ISOLATION ROOM."
--- NOTE | 2020-07-20 12:31 | NUR ---
CALLED FOR EMS FOR TRANSPORT.
[2020-07-20 13:36] VITALS: BP 135/63
== END 2020-07-20 13:38 | disposition other institution (70) ==
LOC: ER 10:04
DX: U07.1 COVID-19 (principal); R50.9 Fever, unspecified; R11.2 Nausea with vomiting, unspecified; E86.0 Dehydration; R94.31 Abnormal electrocardiogram [ECG] [EKG]
CPT/HCPCS: 36415; 51700; 71045; 80053; 80162; 82550; 82553; 83605; 83735; 84484; 85025; 85610; 85730; 87040; 87071; 87205; 87400; 93005; 99284; C9113; J0456; J1100; J2405; J2543; J7030; U0002